=== PATIENT | female | born 1980 | race Caucasian/White ===

== ENCOUNTER 2018-01-11 14:11 | Emergency (ER) | payer BC ==
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
[2018-01-11 15:23] LABS: #Basophils 0.1 thou/uL (0.0-0.2); #Monocytes 0.3 thou/uL (0.11-0.59); #Neutrophils 3.2 thou/uL (1.40-6.50); %Basophils 1.5 % (0.0-1.0); %Eosinophils 0.6 % (0.0-10.0); %Lymphocytes 36.1 % (21.0-51.0); %Monocytes 4.7 % (0.0-10.0); %Neutrophils 57.1 % (42.0-75.0); Hemoglobin 13.1 g/dL (12.0-16.0); Mean Corpuscular HGB CONC 34.2 g/dL (32.0-36.0); Mean Corpuscular Hemoglobin 30.6 pg (27.0-31.0); Mean Corpuscular Volume 89.4 fl (81.0-99.0); Mean Platelet Volume 5.9 fL (7.4-10.4); Platelet Count 303 thou/uL (130-400); RBC Distribution Width 11.3 % (11.5-14.5); Red Blood Cell (RBC) Count 4.27 mill/uL (4.20-5.40); White Blood Cell (WBC) Count 5.5 thou/uL (4.8-10.8)
[2018-01-11 15:26] LABS: BHCG - Serum Negative (NEGATIVE); Pregs Control Background? CLEAR/WHITE (CLR/WHITE); Pregs Control Bar Appear? YES (CONTROL BAR)
[2018-01-11] MEDS ORDERED: Lorazepam 2 MG/ML VIAL ONE (15:26)
[2018-01-11 15:32] LABS: ALT (SGPT) 17 U/L (8-55); AST (SGOT) 21 U/L (5-34); Albumin 4.3 g/dL (3.5-5.0); Alkaline Phosphatase 63 U/L (40-150); Anion Gap 12 mmol/L (10-20); BUN (Urea Nitrogen) 12 mg/dL (7.0-18.7); Bilirubin, Total 0.4 mg/dL (0.2-1.2); Calc. Creatinine Clearance 0 mL/min (70-130); Calcium 9.5 mg/dL (7.8-10.44); Carbon Dioxide 25 mmol/L (22-29); Chloride 105 mmol/L (98-107); Dilantin Less than 1.8 ug/mL (10.0-20.0); Estimated GFR-MDRD 77; Globulin 2.9 g/dL (2.4-3.5); Glucose 93 mg/dL (70-105); Protein, Total 7.2 g/dL (6.0-8.3); Sodium 138 mmol/L (136-145)
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
[2018-01-11] MEDS ORDERED: Ondansetron HCl/PF 4 MG/2 ML Vial ONE (16:57)
== END 2018-01-11 17:16 | disposition home or self-care (01) ==
LOC: ERS 14:11
DX: G40.909 Epilepsy, unspecified, not intractable, without status epilepticus (principal); F41.9 Anxiety disorder, unspecified; G43.909 Migraine, unspecified, not intractable, without status migrainosus; E03.9 Hypothyroidism, unspecified
CPT/HCPCS: 36415; 70450; 71045; 72125; 80053; 80164; 80185; 84703; 85025; 93005; 96374; 96375; 96376; J2060; J2270; J2405

== ENCOUNTER 2018-02-15 20:06 | Observation (INO) | payer BC, OTHER ==
[2018-02-15 20:46] LABS: BHCG - Serum Negative (NEGATIVE); Pregs Control Background? CLEAR/WHITE (CLR/WHITE); Pregs Control Bar Appear? YES (CONTROL BAR)
[2018-02-15 20:54] LABS: ALT (SGPT) 15 U/L (8-55); AST (SGOT) 19 U/L (5-34); Albumin 3.9 g/dL (3.5-5.0); Alkaline Phosphatase 79 U/L (40-150); Anion Gap 12 mmol/L (10-20); BUN (Urea Nitrogen) 7 mg/dL (7.0-18.7); Bilirubin, Total 0.2 mg/dL (0.2-1.2); Calc. Creatinine Clearance 0 mL/min (70-130); Calcium 8.9 mg/dL (7.8-10.44); Carbon Dioxide 24 mmol/L (22-29); Chloride 107 mmol/L (98-107); Estimated GFR-MDRD 77; Globulin 2.7 g/dL (2.4-3.5); Glucose 123 mg/dL (70-105); Potassium 3.6 mmol/L (3.5-5.1); Protein, Total 6.6 g/dL (6.0-8.3); Sodium 139 mmol/L (136-145)
[2018-02-15 20:55] LABS: PTT 27.7 SEC (22.9-36.1); Prothrombin Time 13.6 SEC (12.0-14.7)
--- NOTE | 2018-02-15 21:10 | RAD ---
SINGLE VIEW OF THE CHEST: Comparison: 01-11-18 History: Seizure. History of epilepsy. FINDINGS: Single view of the chest shows a normal sized cardiomediastinal silhouette. There is no evidence of c onsolidation, mass, or pleural effusion. The bones are unremarkable. IMPRESSION: No evidence of acute cardiopulmonary disease. POS: [facility]
[2018-02-15 21:25] LABS: Eosinophils 1 % (0-10); Hemoglobin 12.1 g/dL (12.0-16.0); Lymphocytes 49 % (21-51); MDiff Complete? YES; Mean Corpuscular HGB CONC 34.3 g/dL (32.0-36.0); Mean Corpuscular Hemoglobin 30.4 pg (27.0-31.0); Mean Corpuscular Volume 88.5 fl (81.0-99.0); Mean Platelet Volume 5.8 fL (7.4-10.4); Monocytes 4 % (0-10); Neutrophil 46 % (42-75); PLT Morphology Comment Appears Adequate; Platelet Count 319 thou/uL (130-400); RBC Distribution Width 11.3 % (11.5-14.5); Red Blood Cell (RBC) Count 3.98 mill/uL (4.20-5.40); White Blood Cell (WBC) Count 6.3 thou/uL (4.8-10.8)
--- NOTE | 2018-02-15 22:13 | CT ---
CT BRAIN WITHOUT CONTRAST: Comparison: 01-11-18 History: Multiple seizures. History of brain mass. Technique: Multiple contiguous axial images were obtained in a CT of the brain without contrast. FINDINGS: The brain is normal in morphology and attenuation without focal lesions or confluent areas of infarct ion. There is no evidence of hydrocephalus, intracranial hemorrhage, or extraaxial fluid collection. The calvarium and overlying soft tissues are unremarkable. The visualized paranasal sinuses and masto id air cells are well aerated. IMPRESSION: No evidence of acute intracranial abnormality. POS: [facility]
[2018-02-15] MEDS ORDERED: Valproate Sodium 1,000 MG in Sodium Chloride 0.9% 100 ML IVPB SCH ×2 (22:15→23:45)
[2018-02-15] MEDS ORDERED: Morphine 4 MG/ML VIAL ONE (22:58)
[2018-02-15] MEDS ORDERED: Ketorolac Tromethamine 30 MG/ML VIAL ONE (22:58)
[2018-02-16 00:42] LABS: Lactic Acid 1.7 mmol/L (0.5-2.2)
[2018-02-16] MEDS ORDERED: Acetaminophen 325 MG TAB PO PRN ×2 (02:35→03:44)
[2018-02-16] MEDS ORDERED: Sodium Chloride 0.9% 1,000 ML IV SCH (02:35)
[2018-02-16] MEDS ORDERED: Ondansetron HCl/PF 4 MG/2 ML Vial IVP PRN ×2 (02:35→03:44)
[2018-02-16] MEDS ORDERED: Ondansetron ODT 4 MG TAB SL PRN (02:35)
[2018-02-16] MEDS ORDERED: ELETRIPTAN HYDROBROMIDE 40 MG PO PRN (03:33)
[2018-02-16] MEDS ORDERED: ALPRAZolam 0.5 MG TAB PO PRN (03:33)
[2018-02-16] MEDS ORDERED: tiZANidine HCl 4 MG TAB PO PRN (03:33)
[2018-02-16] MEDS ORDERED: diphenhydrAMINE 50 MG CAP PO PRN (03:33)
[2018-02-16] MEDS ORDERED: Methocarbamol 500 MG TAB PO PRN (03:37)
[2018-02-16] MEDS ORDERED: Lorazepam 2 MG/ML VIAL SLOW IVP PRN (03:42)
[2018-02-16] MEDS ORDERED: Milk Of Magnesia 30 ML UDCUP PO PRN (03:44)
[2018-02-16] MEDS ORDERED: Ondansetron ODT 4 MG TAB PO PRN (03:44)
[2018-02-16] MEDS ORDERED: Mag-Al 1200 mg/1200 mg/30 ML UDCUP PO PRN (03:44)
[2018-02-16] MEDS ORDERED: traZODone HCl 150 MG TAB PO SCH (03:45)
[2018-02-16] MEDS ORDERED: Mirtazapine 15 MG TAB PO SCH ×2 (03:45→21:00)
[2018-02-16] MEDS ORDERED: ALPRAZolam 0.5 MG TAB PO SCH ×2 (03:45→18:45)
[2018-02-16] MEDS ORDERED: SUMAtriptan Succinate 50 MG TAB PO PRN (03:48)
[2018-02-16] MEDS: diphenhydrAMINE 50 MG CAP PO PRN (04:05)
[2018-02-16] MEDS: Sodium Chloride 0.9% 1,000 ML IV SCH ×2 (04:07→18:51)
[2018-02-16] MEDS: Ketorolac Tromethamine 30 MG/ML VIAL IVP PRN ×2 (04:10→18:25)
[2018-02-16] MEDS: Levothyroxine Sodium 75 MCG TAB PO SCH (04:18)
--- NOTE | 2018-02-16 04:34 | PDOC.FPRHP ---
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 Per patient, she was with her dog when she felt like she was tripping over the leash. She fell back on her bottom, and upon getting up she reports having seizure-like activity. She recovered and was able to walk a short distance before having another seizure. At this time her was present who helped her to the ground. Patient reportedly had upwards of 20 seizures between onset and arrival to ED. She recalls being aware she was having a seizure, but was unable to control her body. Her states these are not like her normal seizures. She has had several stressors recently to include problems with her son and a recent in the family a few days ago. She was last hospitalized in December for similar reason and was diagnosed with psychogenic non-epileptic seizures. She had multiple stressors at that time, as well. Patient sees Dr. Arce in [place] for neurology follow up. She was titrated off of Depakote 1 month ago, because it did not seem to be working. She has been on Vimpat for about a year. ED Course: Patient was given 8 mg of Ativan, 4 mg of morphine, and 15 mg of toradol in the ED. Neurology was consulted. Dr. Warner recommended loading dose of depakote. He will see patient in AM. - Allergies/Adverse Reactions Allergies Allergy/AdvReac Type Severity Reaction Status Date / Time meperidine HCl [From Demerol] AdvReac Mild Nausea Verified 05/26/17 00:06 ADHESIVES AdvReac Mild Rash Uncoded 05/26/17 00:07 - Home Medications Medication Instructions Recorded Confirmed Type Estrogens, Conjugated [Premarin] 0.15 mg PO HS 11/05/13 02/16/18 History Multivitamin [Multi-Vitamin Daily] 1 tablet PO DAILY 11/05/13 02/16/18 History Venlafaxine HCl [Effexor] 75 mg PO DAILY 11/05/13 02/16/18 History ALPRAZolam [Xanax] 0.5 mg PO TID 11/08/13 02/16/18 History Cyanocobalamin/Folic Acid [Vitamin 1 tablet PO DAILY 07/15/14 02/16/18 History B12/Folic Acid] Mirtazapine [Remeron] 7.5 mg PO HS 05/20/16 02/16/18 History Eletriptan Hydrobromide [Relpax] 40 mg PO PRN PRN #0 tab 05/22/16 02/16/18 Rx Aspirin [Aspirin Chewable Tablet] 81 mg PO DAILY 08/11/16 02/16/18 History Cholecalciferol (Vitamin D3) 2,000 unit PO HS 08/11/16 02/16/18 History [Vitamin D] Levothyroxine Sodium 75 mcg PO DAILY 03/08/17 02/16/18 History Lacosamide [Vimpat] 50 mg PO BID 05/26/17 02/16/18 History tiZANidine HCl [Tizanidine HCl] 2 mg PO PRN PRN 05/26/17 02/16/18 History traZODone HCl 100 mg PO HS 05/26/17 02/16/18 History ALPRAZolam [Xanax] 0.5 mg PO HS PRN 02/16/18 02/16/18 History Verapamil HCl 40 mg PO DAILY 02/16/18 02/16/18 History diphenhydrAMINE HCl [Unisom] 100 mg PO HS PRN 02/16/18 02/16/18 History - History PMHx: Partial complex and grand mal seizures, hx of psychogenic non-epileptic seizures, empty sella syndrome, hypothyroidism, depression, anxiety, migraine headaches with aura PSHx: Hysterectomy, cholecystectomy, hemorrhoidectomy, D&C x2, rhinoplasty, knee surgery FHx: Non-contributory Social: Patient lives at home with her and kids. She denies tobacco, alcohol or drug use. - Review of Systems General: denies: fever/chills, weight/appetite/sleep changes, night sweats Eyes: denies: vision changes ENT: denies: nasal congestion Respiratory: denies: cough, shortness of breath Cardiovascular: denies: chest pain, palpitation, edema Gastrointestinal: denies: nausea, vomiting, diarrhea, abdominal pain Genitourinary: denies: dysuria Skin: denies: rashes Musculoskeletal: reports: pain (diffuse body aches) Neurological: reports: seizure Psychological: reports: anxiety, depression - Vital signs BP: [107/72] HR: [93] RR: [20] Tmax: [98.0] Pox: [98]% on [RA] Wt: [] - Physical Exam Constitutional: NAD, awake, alert and oriented, well developed HEENT: normocephalic and atraumatic, PERRLA, EOMI, no scleral icterus, grossly normal vision, grossly normal hearing Neck: supple Heart: RRR, normal S1/S2, no murmurs/rubs/gallops, pulses present, no edema Lungs: CTAB, no respiratory distress, good air movement, no wheezing Abdomen: soft, non-tender, bowel sounds present, no masses/distention Musculoskeletal: normal structure, normal tone Neurological: no focal deficit, CN II-XII intact Skin: no rash/lesions, capillary refill <2 seconds Heme/Lymphatic: no unusual bruising or bleeding -Psychiatric: Depressed/sad affect, tearful on exam, anxious appearing FMR H&P: Results - Labs Result Diagrams: 02/15/18 20:15 02/16/18 09:28 Lab results: WBC 6.3 thou/uL (4.8-10.8) 02/15/18 20:15 Hgb 12.1 g/dL (12.0-16.0) 02/15/18 20:15 Hct 35.3 % (36.0-47.0) L 02/15/18 20:15 MCV 88.5 fl (81.0-99.0) 02/15/18 20:15 Plt Count 319 thou/uL (130-400) 02/15/18 20:15 Sodium 139 mmol/L (136-145) 02/15/18 20:21 Potassium 3.6 mmol/L (3.5-5.1) 02/15/18 20:21 Chloride 107 mmol/L (98-107) 02/15/18 20:21 Carbon Dioxide 24 mmol/L (22-29) 02/15/18 20:21 BUN 7 mg/dL (7.0-18.7) 02/15/18 20:21 Creatinine 0.83 mg/dL (0.6-1.1) 02/15/18 20:21 Glucose 123 mg/dL (70-105) H 02/15/18 20:21 Lactic Acid 1.7 mmol/L (0.5-2.2) 02/16/18 00:18 Calcium 8.9 mg/dL (7.8-10.44) 02/15/18 20:21 Total Bilirubin 0.2 mg/dL (0.2-1.2) 02/15/18 20:21 AST 19 U/L (5-34) 02/15/18 20:21 ALT 15 U/L (8-55) 02/15/18 20:21 Alkaline Phosphatase 79 U/L (40-150) 02/15/18 20:21 Serum Total Protein 6.6 g/dL (6.0-8.3) 02/15/18 20:21 Albumin 3.9 g/dL (3.5-5.0) 02/15/18 20:21 - Radiology Interpretation Chest x-ray Status: report reviewed by me Additional comment: No acute findings CT scan - head Status: report reviewed by me Additional comment: No acute findings FMR H&P: A/P - Problem List (1) Psychogenic nonepileptic seizure Current Visit: No Status: Acute Code(s): F44.5 - CONVERSION DISORDER WITH SEIZURES OR CONVULSIONS (2) Depression Current Visit: Yes Status: Acute Code(s): F32.9 - MAJOR DEPRESSIVE DISORDER , SINGLE EPISODE, UNSPECIFIED (3) Migraine with aura Current Visit: Yes Status: Acute Code(s): G43.109 - MIGRAINE WITH AURA, NOT INTRACTABLE, W/O STATUS MIGRAINOSUS (4) Empty sella syndrome Current Visit: Yes Status: Chronic Code(s): E23.6 - OTHER DISORDERS OF PITUITARY GLAND (5) Anxiety Current Visit: No Status: Chronic Code(s): F41.9 - ANXIETY DISORDER, UNSPECIFIED (6) Hypothyroidism Current Visit: No Status: Chronic Code(s): E03.9 - HYPOTHYROIDISM, UNSPECIFIED (7) Seizure disorder, complex partial Current Visit: No Status: Chronic Code(s): G40.209 - LOCAL-REL SYMPTC EPI W CMPLX PRT SEIZ,NOT NTRCT,W/O STAT EPI Qualifiers: Epilepsy type: partial symptomatic Intractability: not intractable Status epilepticus: without status epilepticus Qualified Code(s): G40.209 - Localization-related (focal) (partial) symptomatic epilepsy and epileptic syndromes with complex partial seizures, not intractable, without status epilepticus (8) Seizure disorder, grand mal Current Visit: No Status: Chronic Code(s): G40.409 - OTH GENERALIZED EPILEPSY, NOT INTRACTABLE, W/O STAT EPI - Plan Psychogenic non-epileptic seizures - Several episodes of seizure-like activity which started this afternoon - Hospitalized in mid-December for similar problem, and was diagnosed with psychogenic non-epileptic seizures; would benefit for psych eval - Trigger includes severe stress of which patient endorses at this time; recent in the family and trouble with son - Patient on vimpat for seizures which she has been on for the last year - Recently titrated off of depakote (1 month ago), because it was not working - Neurology consulted in ED; recommended loading dose of depakote - Appreciate neurology recs - Neuro checks Hx of grand mal and partial complex seizures - Continue home medications - Appreciate neurology results Hx of migraine with auras - Continue home medications Depression - Continue current medications; may consider increasing dose of SSRI - Would benefit from psych eval/psychotherapy Anxiety - Continue home medications Empty sella syndrome Hypothyroidism - Continue home medications Disposition/LOS: Dispo: patient admitted to stroke unit for obs. Discharge home with close follow up pending neurology recommendations. FMR H&P: Upper Level - Pertinent history 37yo CF with pmhx seizure d/o (complex partial + grand mal), empty sella syndrome, migraine d/o, hypothyroidism, and anxiety presents with sudden onset of multiple episodes of seizure-like activity after falling at home. Endorses multiple life stressors recently including loss of grandparent and absence of son from life. present at bedside witnessed seizure activity today and pt noted to have both grand mal and partial complex seizures. Called 911 and pt given ativan en route and had multiple recurrent episodes of partial complex seizure activity both on ambulance and upon arrival to ED. ED gave further ativan and morphine and pt noted to stop seizure like activity. Pt aware of some events of seizure but not all. States she is scared that she is having them and knows that they are worsened by stress and anxiety. Also, pt and neurologist in [place] have been working to wean off depakote as pt has been titrated up on Vimpat and has been off depakote for 3 weeks now entirely. (Level =0 in ED). ED physician d/w Dr. Warner who recommended depakote load in ED. - Pertinent findings Labs- CBC, CMP- wnl LA- 3.1-->1.7 after IVF Prolactin- 12.79 valproic acid < 12.5 CT head- neg PE- Gen- drowsy but arousable and appropriate HEENT- normocephalic, atraumatic. PERRL, EOMI. CV & Lungs- wnl Neuro- no focal deficits noted. mildly confused speech but essentially wnl. Derm- scattered scars, abrasions Psyc- A&O x3, anxious-appearing, tearful. - Plan Date/Time: 02/16/18 0432 37yo CF with pmhx seizure d/o and prior PNES presents with- 1) seizure-like activity in pre-existing seizure d/o- likely combination of epileptic seizures and psychogenic nonepileptic seizures as pt endorses stress/ anxiety as a major component. counseled regarding life stressors. restart home meds and consider titration up of SSRI w/ improved anxiety control. cont home benzo. will likely benefit from psychotherapy as outpatient. pt is s/p depakote load in ED. pending further recs from Dr. Warner (consulted in ED), and primary neurologist out of [place]. 2) seizure d/o (complex partial & grand mal type seizures)- continue vimpat and seizure ppx/ precautions. 3) anxiety 4) migraine d/o 5) hypothyroidism I, [Obdulia Sheriff DO ([id number])], have evaluated this patient and agree with findings/plan as outlined by quality internship resident. Pertinent changes/additions are listed here. Attending Addendum - Attending Addendum Date/Time: 02/16/18 [id number] I personally evaluated the patient and discussed the management with Dr. Lawler and Dr. Sheriff I agree with the History, Examination, Assessment and Plan documented above with any addition or exceptions noted below. 37 yo female with multiple medical conditions on multiple medications presents for evaluation of seizure-like activity. Patient reports multiple convulsive episodes with brief alterations in consciousness. Has resolved since admission. Labs reviewed and stable. Prolactin WNL. Old records from [facility] reviewed. Noted to have epileptic and non-epileptic seizures. Epileptic seizures appear to be dx in 2012. EEG at that time was negative. Neurology has been consulted for this hospitalization. Have requested records from neurologistist in [place]/[facility] on more than one occasion without success. Still awaiting records. Has history of migraine headaches with neurosensory loss. Has been recommended to her in the past not to take estrogen or triptans. Appears to continue these as home meds. Will readdress with neurology. Stable partial empty sella on MRI. Will address with neurology. Appears to have borderline hypothyroidism which is treated with 50 mcg of levothyroxine. TSH = 0.5. No other pituitary issues. Polypharmacy. Unsure psych dx. Has seen [facility] in the past. Unsure if been followed currently. Needs psych MD. Will review with pharm to make sure not a contributing factor or causing lower seizure thresholds. Awaiting neurology along with neurology records for confirmation testing of epileptic dx. Jose Manuel
[2018-02-16] MEDS ORDERED: Lorazepam 2 MG/ML VIAL ONE ×2 (05:07→05:08)
[2018-02-16] MEDS: Verapamil 80 MG TAB PO SCH (08:09)
[2018-02-16] MEDS: Pregabalin 75 MG CAP PO SCH ×2 (08:12→22:48)
[2018-02-16] MEDS: Lacosamide 50 mg Tablet PO SCH ×2 (08:12→22:48)
[2018-02-16] MEDS: Multivit, Therapeutic 1 TAB PO SCH (08:13)
[2018-02-16] MEDS: Cyanocobalamin (Vitamin B-12) 1,000 MCG TAB PO SCH (08:13)
[2018-02-16] MEDS: Docusate 100 MG CAP PO SCH ×2 (08:13→22:50)
[2018-02-16] MEDS: ALPRAZolam 0.5 MG TAB PO SCH ×2 (08:13→13:36)
--- NOTE | 2018-02-16 09:47 | PDOC.EVN ---
Event Note - Event Note Event Note: Will carrasquillo called as pt feel from standing after ambulating. She reportedly went to the ground and began moaning. She subsequnelty began mild convulsive like activity at which point nurse in the room who witnessed fall called a code foreign. On eval of pt she was unresponsive lying on the floor in position. She did not respond to sternal rub, arm drop did not strike pts face. She did withdrawal from painful stimuli with nail pinch. Her heart was regular rate and rhythm, she appeared to be breath holding, nonetheless respiratory rate fell w/ in normal limits. Her BP was wnl, glucose was 95 and she did not have any tonic clonic activity or convulsions when I was at bedside. Her rhythm strip from tele monitor showed sinus tachycardia, otherwise normal. She had no post ictal state following event and was asking for her when she recovered. No loss of bowel or bladder function. Will get CT head and neck for fall and repeat BMP and prolactin. Pt was conversing with nursing staff and had no gross neuro deficit immediately following event. <Riley Cary - Last Filed: 02/16/18 09:36> Attending Addendum - Attending Addendum Date/Time: 02/17/18 1302 I personally evaluated the patient and discussed the management with Dr. Cary and Dr. Calderon I was present with Dr. Cary and Dr. Calderon during code green. Agree with documentation able. Did not appear to be an epileptic seizure but more consist with patients nonepileptic seizures. Awaiting evaluation of neurology. Patient back to baseline at end of code. Will trauma scan 2/2 fall. Scratches noted to upper and lower extremities. Will address this afternoon in regards to possible self harm vs trauma. ABrayMD <Maria Del Carmen Madsen - Last Filed: 02/17/18 13:11>
[2018-02-16 10:00] LABS: Anion Gap 13 mmol/L (10-20); BUN (Urea Nitrogen) 4 mg/dL (7.0-18.7); Calc. Creatinine Clearance 4 mL/min (70-130); Calcium 9.3 mg/dL (7.8-10.44); Carbon Dioxide 22 mmol/L (22-29); Chloride 109 mmol/L (98-107); Estimated GFR-MDRD 83; Glucose 84 mg/dL (70-105); Sodium 140 mmol/L (136-145)
--- NOTE | 2018-02-16 13:01 | CT ---
NONCONTRAST HEAD CT: HISTORY: The patient fell yesterday. The patient had a seizure again this morning and fell again. COMPARISON: 02/15/2018 TECHNIQUE: A noncontrast head CT is performed from the skull base to the skull vertex. FINDINGS: No parenchymal hemorrhage. No extraaxial hematoma. No midline shift. Basilar cisterns are patent. Brain volume is age appropriate. Cortical worrell white matter differentiation is preserved. The ventricles and sulci are patent and symmetric. The calvarium is intact. Adequate aeration of the sinuses and mastoid air cells. IMPRESSION: No intracranial posttraumatic sequelae. POS: [facility]
--- NOTE | 2018-02-16 13:13 | CT ---
ABDOMEN CT WITH CONTRAST: PELVIS CT WITH CONTRAST: HISTORY: Status post fall. Seizure. Left pelvic pain. COMPARISON: None. TECHNIQUE: Abdomen and pelvis CT is performed with IV contrast. Coronal reformatted images are submitted for in terpretation. FINDINGS: ABDOMEN: Presumed atelectatic changes in the lung bases. Heart size is normal. No pericardial effu stephen. The descending thoracic aorta and abdominal aorta have a normal caliber. No periaortic fat st randing. Symmetric attenuation of the psoas muscles. The gallbladder is surgically absent. Intrahepatic and extrahepatic portal vein is patent. No gastrohepatic, retrocrural, or periportal lymphadenopathy. No mesenteric mass, lymphadenopathy, free air, or free fluid. Symmetric enhancement of the kidneys. No obstructive uropathy. The liver, spleen, pancreas, and adrenal glands have appropriate enhancement. No CT evidence of alysa d organ injury. Limited evaluation of the alimentary canal due to lack of oral contrast. No evidence of bowel injury or bowel obstruction. Normal caliber appendix is noted. Fecal material in a nondistended, nondilat ed colon. Diverticulosis without evidence of diverticulitis. PELVIS: The uterus is surgically absent. Mild irregularity of the urinary bladder, nonspecific. No pelvis mass, lymphadenopathy, free air, or free fluid. Incidental anastomosis at the rectosigmoid r egion is noted. The visualized ribs are unremarkable. The visualized lumbar spine vertebral body height is maintaine d. No fracture. The transverse processes are intact. The sacral ala is intact. The sacroiliac karin nts are patent and symmetric. The bony pelvis is also intact. The visualized left and right hip is unremarkable. IMPRESSION: No posttraumatic change. POS: [facility]
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
[2018-02-16] MEDS ORDERED: Iopamidol 370 76% 100 ML VIAL ONE (15:09)
--- NOTE | 2018-02-16 20:01 | CON ---
DATE OF CONSULTATION: 02/16/2018. NEUROLOGY CONSULTATION CONSULTING PHYSICIAN: [facility]. IMPRESSION: Ms. Bolivar is a prior patient of mine who [facility] [place] She has failed multiple anticonvulsant drugs. There is a question as to whether her seizures are partly psychogenic. She has had previous epilepsy monitoring and she reports that t here was evidence of epilepsy present. I do not have anything I can offer her. She is continuing to have events. I would see about having her transferred to [place] to be taken under the care of her primary neurologist.
[2018-02-16] MEDS ORDERED: Estrogens, Conjugated 0.3 MG TAB PO SCH (21:00)
[2018-02-16] MEDS ORDERED: traZODone HCl 50 MG TAB PO SCH (21:00)
[2018-02-16] MEDS: HYDROcodone/Acetaminophen 5/325 mg Tablet PO PRN (22:52)
[2018-02-17] MEDS: diphenhydrAMINE 50 MG CAP PO PRN (00:17)
[2018-02-17] MEDS: Sodium Chloride 0.9% 1,000 ML IV SCH ×2 (00:23→10:26)
[2018-02-17] MEDS: Levothyroxine Sodium 75 MCG TAB PO SCH (06:04)
[2018-02-17 06:13] LABS: Anion Gap 10 mmol/L (10-20); BUN (Urea Nitrogen) 7 mg/dL (7.0-18.7); Calc. Creatinine Clearance 4 mL/min (70-130); Calcium 8.9 mg/dL (7.8-10.44); Carbon Dioxide 25 mmol/L (22-29); Chloride 108 mmol/L (98-107); Estimated GFR-MDRD Greater than 90; Glucose 99 mg/dL (70-105); Potassium 3.6 mmol/L (3.5-5.1); Sodium 139 mmol/L (136-145)
[2018-02-17 06:33] LABS: Hemoglobin 11.6 g/dL (12.0-16.0); Lymphocytes 51 % (21-51); MDiff Complete? YES; Mean Corpuscular HGB CONC 33.9 g/dL (32.0-36.0); Mean Corpuscular Hemoglobin 30.3 pg (27.0-31.0); Mean Corpuscular Volume 89.4 fl (81.0-99.0); Mean Platelet Volume 6.1 fL (7.4-10.4); Monocytes 11 % (0-10); Neutrophil 34 % (42-75); PLT Morphology Comment Appears Adequate; Platelet Count 294 thou/uL (130-400); RBC Distribution Width 11.6 % (11.5-14.5); RBC Morphology Normal; Reactive Lymphocytes 4 % (0-10); Red Blood Cell (RBC) Count 3.81 mill/uL (4.20-5.40); White Blood Cell (WBC) Count 5.3 thou/uL (4.8-10.8)
[2018-02-17 09:25] LABS: Acetaminophen Less than 6.0 mcg/mL (10.0-30.0); Alcohol Less than 10 mg/dL (Less than 10); Salicylate Less than 8.0 mg/dL (15.0-30.0)
[2018-02-17] MEDS: Cyanocobalamin (Vitamin B-12) 1,000 MCG TAB PO SCH (09:25)
[2018-02-17] MEDS: ALPRAZolam 0.5 MG TAB PO SCH ×2 (09:25→13:58)
[2018-02-17] MEDS: Multivit, Therapeutic 1 TAB PO SCH (09:26)
[2018-02-17] MEDS: Lacosamide 50 mg Tablet PO SCH (09:26)
[2018-02-17] MEDS: Pregabalin 75 MG CAP PO SCH (09:26)
[2018-02-17] MEDS: Docusate 100 MG CAP PO SCH (09:26)
[2018-02-17] MEDS: Verapamil 80 MG TAB PO SCH (09:28)
[2018-02-17] MEDS: HYDROcodone/Acetaminophen 5/325 mg Tablet PO PRN (09:49)
--- NOTE | 2018-02-17 11:14 | PDOC.FM ---
- Subjective Subjective: No acute events overnight. Pt reports pelvis pain from fall yesterday. Otherwise no complaints. Per the night team, pt reported that "she is only getting three xanax a day since shes been here and usually takes four. If [she] doesn't get another she may will have another seizure." She reports many instances of "seizures" being triggered by psychiatric stressors, including loss of loved ones, family dynamic stresses and the presence of pain (including headaches). She denies SI and HI. - Objective Vital Signs & Weight: Vital Signs (12 hours) Temp Pulse Resp BP BP Pulse Ox 02/17/18 10:00 103/72 02/17/18 08:11 98.1 F 97 18 02/17/18 08:06 98.6 F 88 16 93/53 L 98 02/17/18 03:52 97 18 101/68 97 02/17/18 01:05 90 18 115/79 98 I&O: 02/16/18 02/17/18 02/18/18 06:59 06:59 06:59 Intake Total 615 1480 540 Output Total 700 1000 Balance -85 480 540 Result Diagrams: 02/17/18 05:14 02/17/18 05:14 <Riley Cary - Last Filed: 02/17/18 11:11> - Objective Vital Signs & Weight: Vital Signs (12 hours) Temp Pulse Resp BP BP Pulse Ox 02/17/18 12:22 98.2 F 101 H 16 131/88 98 02/17/18 10:00 103/72 02/17/18 08:11 98.1 F 97 18 02/17/18 08:06 98.6 F 88 16 93/53 L 98 02/17/18 03:52 97 18 101/68 97 I&O: 02/16/18 02/17/18 02/18/18 06:59 06:59 06:59 Intake Total 615 1480 540 Output Total 700 1000 Balance -85 480 540 Result Diagrams: 02/17/18 05:14 02/17/18 05:14 <Maria Del Carmen Madsen - Last Filed: 02/17/18 14:01> Phys Exam - Physical Examination Constitutional: NAD HEENT: PERRLA, sclera anicteric Respiratory: no wheezing, no rales, no rhonchi, clear to auscultation bilateral Cardiovascular: RRR, no significant murmur, no rub Gastrointestinal: soft, non-tender, no distention, positive bowel sounds Musculoskeletal: no edema, pulses present Neurological: non-focal, moves all 4 limbs Deviation from normal: tearful, delayed speech pattern w/o dysarrthria <Riley Cary - Last Filed: 02/17/18 11:11> Dx/Plan (1) Seizure Code(s): R56.9 - UNSPECIFIED CONVULSIONS Status: Acute - Plan Plan: Seizure disorder: -pt has a specialist in [place] and has an appt set up for next @ 245pm. She was seen by neurology here who recommended transfer to [place] where she can get care from her specialist. We will touch base with Neuro today to clarify as to whether pt requires transfer or is stable enough for DC and OP f/ u. Given descriptors of "seizure" events and association with psych stressors PNES remains a possibility. To date, have not been able to obtain EEG results that have recorded seizure activity. She would benefit from seeing her specialist in [place] and we will arrange the safest feasible way to make that happen. Likely DC or transfer today pending neuro recs. - continue all other home medications for chronic med conditions and seizure disorder. <Riley Cary - Last Filed: 02/17/18 11:11> (1) Psychogenic nonepileptic seizure Code(s): F44.5 - CONVERSION DISORDER WITH SEIZURES OR CONVULSIONS Status: Acute (2) Depression Code(s): F32.9 - MAJOR DEPRESSIVE DISORDER, SINGLE EPISODE, UNSPECIFIED Status : Acute (3) Migraine with aura Code(s): G43.109 - MIGRAINE WITH AURA, NOT INTRACTABLE, W/O STATUS MIGRAINOSUS Status: Acute (4) Empty sella syndrome Code(s): E23.6 - OTHER DISORDERS OF PITUITARY GLAND Status: Chronic (5) Anxiety Code(s): F41.9 - ANXIETY DISORDER, UNSPECIFIED Status: Chronic (6) Hypothyroidism Code(s): E03.9 - HYPOTHYROIDISM, UNSPECIFIED Status: Chronic (7) Seizure disorder, complex partial Code(s): G40.209 - LOCAL-REL SYMPTC EPI W CMPLX PRT SEIZ,NOT NTRCT,W/O STAT EPI Status: Chronic Qualifiers: Epilepsy type: partial symptomatic Intractability: not intractable Status epilepticus: without status epilepticus Qualified Code(s): G40.209 - Localization-related (focal) (partial) symptomatic epilepsy and epileptic syndromes with complex partial seizures, not intractable, without status epilepticus (8) Seizure disorder, grand mal Code(s): G40.409 - OTH GENERALIZED EPILEPSY, NOT INTRACTABLE, W/O STAT EPI Status: Chronic <Maria Del Carmen Madsen - Last Filed: 02/17/18 14:01> Attending Addendum - Attending Addendum Date/Time: 02/17/18 4462 I personally evaluated the patient and discussed the management with Dr. Cary and Dr. Calderon I agree with the History, Examination, Assessment and Plan documented above with any addition or exceptions noted below. 37 yo female with multiple medical problems admitted for evaluation of seizure- like activity. No new complaints today. No neuro deficits on exam today. and daughter at bedside today with patient. Discussed case and care plan with patient. Will address urgency of referral to epilepsy specialist with neuro on case. Dispo pending clarification of recs. Patient and family appear satisfied with plan. Reported they would prefer to follow up outpatient vs inpatient transfer. ABrayMD <Maria Del Carmen Madsen - Last Filed: 02/17/18 14:01>
--- NOTE | 2018-02-17 11:31 | PDOC.EVN ---
Event Note - Event Note Event Note: I personally spoke with Dr. Warner concerning disposition planning. Family is adamantly refusing transfer via EMS to [facility] where their neurologists are located. Dr. Warner endorsed feeling comfortable with discharge home due to f/u appt scheduled next , 02/25, with her primary neurologist in [place]. As patient and family are preferring this option as well , we will make arrangements to discharge home today. <Rafi Calderon - Last Filed: 02/17/18 11:29> Attending Addendum - Attending Addendum Date/Time: 02/17/18 4107 I personally evaluated the patient and discussed the management with Dr. Calderon. Patient and at bedside. Expressed desire to see her primary epilepsy specialist due to continued frequency of seizure activity. Patient reports knowing seizure active increases with personal stress and lack of sleep. Risk discussed. Patient actually request going home today. Refused transfer to epilepsy center via EMS and private vehicle. Discussed need to address with neurologist on case. Has follow up with primary epileptologist on at 1400. Patient's confirmed appointment. Confirmed plan with neurology covering case in hospital who is ok with plan and followup. Please see above documentation as well. Jose Manuel <Maria Del Carmen Madsen - Last Filed: 02/17/18 13:26>
[2018-02-17 12:32] VITALS: BP 131/88; TEMP 98.2
== END 2018-02-17 14:27 | disposition home or self-care (01) ==
LOC: ERS 20:06 → 2SW 02-16 02:36
PROVIDERS: ADMIT Family Medicine; ATTEND Family Medicine
DX: F44.5 Conversion disorder with seizures or convulsions (principal); G40.409 Other generalized epilepsy and epileptic syndromes, not intractable, without status epilepticus; G40.209 Localization-related (focal) (partial) symptomatic epilepsy and epileptic syndromes with complex partial seizures, not intractable, without status epilepticus; G43.109 Migraine with aura, not intractable, without status migrainosus; F41.9 Anxiety disorder, unspecified; E23.6 Other disorders of pituitary gland; F32.9 Major depressive disorder, single episode, unspecified; E03.9 Hypothyroidism, unspecified; Z88.5 Allergy status to narcotic agent; Z91.048 Other nonmedicinal substance allergy status; Z79.890 Hormone replacement therapy; Z79.899 Other long term (current) drug therapy; Z79.82 Long term (current) use of aspirin; W19.XXXA Unspecified fall, initial encounter; Y92.009 Unspecified place in unspecified non-institutional (private) residence as the place of occurrence of the external cause
CPT/HCPCS: 36415; 36416; 70450; 71045; 72125; 74177; 80048; 80053; 80164; 80307; 83605; 84146; 84443; 84703; 85025; 85610; 85730; 93005; 96361; 96365; 96366; 96375; 96376; A4216; G0378; J1885; J2060; J2270; J7050

== ENCOUNTER 2018-04-17 21:56 | Observation (INO) | payer OTHER ==
[2018-04-17 22:24] LABS: #Basophils 0.1 thou/uL (0.0-0.2); #Eosinphils 0.1 thou/uL (0.0-0.7); #Lymphocytes 2.2 thou/uL (1.20-3.40); #Monocytes 0.4 thou/uL (0.11-0.59); #Neutrophils 2.9 thou/uL (1.40-6.50); %Basophils 0.9 % (0.0-1.0); %Eosinophils 1.3 % (0.0-10.0); %Lymphocytes 39.1 % (21.0-51.0); %Monocytes 6.9 % (0.0-10.0); %Neutrophils 51.8 % (42.0-75.0); Hemoglobin 11.4 g/dL (12.0-16.0); Mean Corpuscular HGB CONC 34.7 g/dL (32.0-36.0); Mean Corpuscular Hemoglobin 30.5 pg (27.0-31.0); Mean Corpuscular Volume 87.9 fl (81.0-99.0); Mean Platelet Volume 5.4 fL (7.4-10.4); Platelet Count 272 thou/uL (130-400); RBC Distribution Width 11.2 % (11.5-14.5); Red Blood Cell (RBC) Count 3.72 mill/uL (4.20-5.40); White Blood Cell (WBC) Count 5.6 thou/uL (4.8-10.8)
[2018-04-17 22:39] LABS: Bilirubin Negative (Negative); Blood, Urine Negative (Negative); Clarity CLEAR (Clear); Glucose, Urine (Dipstick) Negative (Negative); Leukocyte Negative (Negative); Nitrite Negative (Negative); Protein, Urine (Dipstick) Negative (Neg-Trace); Specific Gravity, Urine 1.006 (1.002-1.036); Urobilinogen 0.2 mg/dL (0.2-1.0); pH, Urine 7.5 (5.0-9.0)
[2018-04-17 22:44] LABS: ALT (SGPT) 14 U/L (8-55); AST (SGOT) 17 U/L (5-34); Albumin 3.7 g/dL (3.5-5.0); Alkaline Phosphatase 61 U/L (40-150); Anion Gap 10 mmol/L (10-20); BUN (Urea Nitrogen) 9 mg/dL (7.0-18.7); Bilirubin, Total 0.2 mg/dL (0.2-1.2); Calc. Creatinine Clearance 0 mL/min (70-130); Calcium 8.7 mg/dL (7.8-10.44); Carbon Dioxide 26 mmol/L (22-29); Chloride 108 mmol/L (98-107); Estimated GFR-MDRD Greater than 90; Globulin 2.4 g/dL (2.4-3.5); Glucose 86 mg/dL (70-105); Potassium 3.8 mmol/L (3.5-5.1); Protein, Total 6.1 g/dL (6.0-8.3); Sodium 140 mmol/L (136-145)
--- NOTE | 2018-04-17 22:45 | RAD ---
LEFT KNEE FOUR VIEWS: INDICATIONS: Laceration. Pain in left knee. COMPARISON: Reference made to a 12/04/2013 exam. FINDINGS: No fracture, dislocation, or joint capsular distention. There is mild skin surface irregularity at t he infrapatellar region. IMPRESSION: 1. No acute osseous abnormality of the left knee. 2. No radiopaque foreign bodies seen within the regional soft tissues. POS: [facility]
[2018-04-17] MEDS ORDERED: Lidocaine 1% w/Epinephrine 1:100K 20 ML VIAL ONE (23:57)
[2018-04-17] MEDS ORDERED: Morphine 4 MG/ML VIAL ONE (23:57)
--- NOTE | 2018-04-18 01:40 | PDOC.FPRHP ---
- History of Present Illness Chief Complaint: Seizure History of Present Illness: 37 yo F w/hx of seizure disorder NOS and pseudoseizures here with complaint of 5 + seizures today at home. She states that the first seizure was unwitnessed, but she remembers falling backwards onto her back while seizing. She then made her way inside where her other seizures were witnessed by her daughter. Seizures were described as grand mal type seizures. Due to the number of seizures she called EMS for evaluation in the ED. In route pt was given 4 of ativan and 2.5 of versed. Pt states that she has a hx of 4 types of seizures and names specifically partial and grand mal seizures. She has had multiple extensive work ups in the past to include multiple EEGs and a therapeutic LP and now sees a neurologist in the [place] area who is working on medical management. She states that she typically has 1 seizure per week and that they are exacerbated by stress and that she has been under increased stress as of late. She states that today's episodes are similar to those in the past, but that she has noticed a decreased post ictal period of apprx 30 sec. She states that the seizures are lasting about 1 min. She also complains of recent discharge from both ears described as bloody mucus like discharge. She denies an inciting event. She states that she regularly cleans her ears with alcohol and qtips and doesnt. She denies changes in hearing , fever, or ear pain. She has not seen her PCP for this - Allergies/Adverse Reactions Allergies Allergy/AdvReac Type Severity Reaction Status Date / Time meperidine HCl [From Demerol] AdvReac Mild Nausea Verified 05/26/17 00:06 ADHESIVES AdvReac Mild Rash Uncoded 05/26/17 00:07 - Home Medications Medication Instructions Recorded Confirmed Type Estrogens, Conjugated [Premarin] 0.15 mg PO HS 11/05/13 04/18/18 History Multivitamin [Multi-Vitamin Daily] 1 tablet PO DAILY 11/05/13 04/18/18 History Venlafaxine HCl [Effexor] 75 mg PO DAILY 11/05/13 04/18/18 History Cyanocobalamin/Folic Acid [Vitamin 1 tablet PO DAILY 07/15/14 04/18/18 History B12/Folic Acid] Mirtazapine [Remeron] 7.5 mg PO HS 05/20/16 04/18/18 History Eletriptan Hydrobromide [Relpax] 40 mg PO PRN PRN #0 tab 05/22/16 04/18/18 Rx Aspirin [Aspirin Chewable Tablet] 81 mg PO DAILY 08/11/16 04/18/18 History Cholecalciferol (Vitamin D3) 2,000 unit PO HS 08/11/16 04/18/18 History [Vitamin D] Levothyroxine Sodium 75 mcg PO DAILY 03/08/17 04/18/18 History Lacosamide [Vimpat] 50 mg PO BID 05/26/17 04/18/18 History tiZANidine HCl [Tizanidine HCl] 2 mg PO PRN PRN 05/26/17 04/18/18 History Verapamil HCl 40 mg PO DAILY 02/16/18 04/18/18 History diphenhydrAMINE HCl [Unisom] 100 mg PO HS PRN 02/16/18 04/18/18 History Acetaminophen [Tylenol Regular 650 mg PO Q4H PRN tab 02/17/18 04/18/18 Rx Strength] ALPRAZolam [Alprazolam] 1 tab PO QID PRN 04/18/18 04/18/18 History Divalproex Sodium [Depakote ER] 500 mg PO BID 04/18/18 04/18/18 History traZODone HCl [Desyrel] 1 tab PO HS 04/18/18 04/18/18 History - History PMHx: Seizure disorder NOS pseudoseizures anxiety PSHx: Hysterectomy for endometriosis and fibroids Oopherectomy due to cysts FHx: Maternal DM and HTN Social: Denies tobacco, recreational drugs, and etoh - Review of Systems General: denies: fever/chills, weight/appetite/sleep changes Eyes: denies: vision changes ENT: denies: nasal congestion, rhinorrhea Respiratory: denies: cough, congestion, shortness of breath Cardiovascular: denies: chest pain, palpitation Gastrointestinal: denies: nausea, vomiting, diarrhea, constipation, abdominal pain Skin: denies: rashes, lesions Musculoskeletal: reports: pain (middle of her back) Neurological: reports: numbness (right hand and foot post seizure), seizure. denies: weakness Psychological: reports: anxiety - Vital signs BP: 114/80 HR: 87 RR: 16 Tmax: 98.4 Pox: 97% on RA Wt: 83.6 kg - Physical Exam Constitutional: NAD, awake, alert and oriented HEENT: PERRLA, EOMI, grossly normal vision, grossly normal hearing, other (2 cm hemostatic lac on left forehead below hairline) Neck: supple, FROM, trachea midline Chest: no-tender to palpation Heart: RRR, normal S1/S2, no murmurs/rubs/gallops, no edema Lungs: CTAB, no respiratory distress Abdomen: soft, non-tender, bowel sounds present Musculoskeletal: normal structure, normal tone, other (2 lacerations to L knee repaired and hemostatic. TTP over lower thoracic/upper lumbar paraspinal mm) Neurological: no focal deficit, CN II-XII intact, normal sensation Skin: no rash/lesions, good turgor Heme/Lymphatic: no unusual bruising or bleeding, no purpura Psychiatric: normal mood and affect, good judgment and insight, intact recent and remote memory FMR H&P: Results - Labs Result Diagrams: 04/17/18 22:15 04/17/18 22:15 Lab results: WBC 5.6 thou/uL (4.8-10.8) 04/17/18 22:15 Hgb 11.4 g/dL (12.0-16.0) L 04/17/18 22:15 Hct 32.7 % (36.0-47.0) L 04/17/18 22:15 MCV 87.9 fl (81.0-99.0) 04/17/18 22:15 Plt Count 272 thou/uL (130-400) 04/17/18 22:15 Neutrophils % 51.8 % (42.0-75.0) 04/17/18 22:15 Sodium 140 mmol/L (136-145) 04/17/18 22:15 Potassium 3.8 mmol/L (3.5-5.1) 04/17/18 22:15 Chloride 108 mmol/L (98-107) H 04/17/18 22:15 Carbon Dioxide 26 mmol/L (22-29) 04/17/18 22:15 BUN 9 mg/dL (7.0-18.7) 04/17/18 22:15 Creatinine 0.71 mg/dL (0.6-1.1) 04/17/18 22:15 Glucose 86 mg/dL (70-105) 04/17/18 22:15 Calcium 8.7 mg/dL (7.8-10.44) 04/17/18 22:15 Total Bilirubin 0.2 mg/dL (0.2-1.2) 04/17/18 22:15 AST 17 U/L (5-34) 04/17/18 22:15 ALT 14 U/L (8-55) 04/17/18 22:15 Alkaline Phosphatase 61 U/L (40-150) 04/17/18 22:15 Serum Total Protein 6.1 g/dL (6.0-8.3) 04/17/18 22:15 Albumin 3.7 g/dL (3.5-5.0) 04/17/18 22:15 Urine Ketones Negative mg/dL (Negative) 04/17/18 22:28 Urine Blood Negative (Negative) 04/17/18 22:28 Urine Nitrite Negative (Negative) 04/17/18 22:28 Ur Leukocyte Esterase Negative (Negative) 04/17/18 22:28 - Radiology Interpretation CT scan - head Status: image reviewed by me (report pending, no obvious acute abnormality) FMR H&P: A/P - Problem List (1) Seizure Current Visit: Yes Status: Acute Priority: High Code(s): R56.9 - UNSPECIFIED CONVULSIONS (2) Laceration of left knee Current Visit: Yes Status: Acute Priority: Low Code(s): S81.012A - LACERATION WITHOUT FOREIGN BODY, LEFT KNEE, INIT ENCNTR (3) Laceration of forehead without complication Current Visit: Yes Status: Acute Priority: Low Code(s): S01.81XA - LACERATION W/O FOREIGN BODY OF OTH PART OF HEAD, INIT ENCNTR (4) Back pain Current Visit: Yes Status: Acute Priority: Low Code(s): M54.9 - DORSALGIA , UNSPECIFIED Qualifiers: Back pain location: thoracic back pain Back pain laterality: midline (5) Psychogenic nonepileptic seizure Current Visit: No Status: Chronic Code(s): F44.5 - CONVERSION DISORDER WITH SEIZURES OR CONVULSIONS - Plan Grand mal seizures vs psychogenic nonepileptic seizures - Admit to stroke for observation. Pt has hx of both true and psychogenic seizure. On most recent admission for seizure EEG was negative and most likely source was psychogenic. - Restart home meds, valproate level is low though pt states she has not missed her meds. - Consult neuro in am - seizure precaution Skin laceration of left knee - closed and hemostatic. routine care Skin laceration of forehead - closure not needed. Hemostatic. routine care Back pain - secondary to fall tylenol and NSAIDs for pain Code status - Full PPx SCD Diet regular Dispo: Pt is stable. This is likely a mixed picture of true and pseudoseizure. Will consult neuro for further direction. Likely length of stay 1-2 days FMR H&P: Upper Level - Pertinent history CC: Seizures 37 year old female with past medical history of uncontrolled seizures presents for multiple grand mal seizures starting last night at 20:00. She has reportedly had 11 grand mal seizures in the 6 hours since onset lasting 1 to 2 minutes with post-ictal state only lasting 30 seconds in most cases per patient and her . No loss of bowel or bladder continence during seizures. She fell once and had 2 lacerations on left leg. Her neurologist is in [place]. She takes Vimpat and Depakote for seizures and reports she has been 100% compliant with meds. She does report her Depakote dose was recently lowered. Last saw neuro 02/25/18. She reports she was working outside today and just fell back several times. She was in her normal state of health prior to that and had not been experiencing any fevers, chills, headache, chest pain, dyspnea, abdominal pain, nausea, vomiting, diarrhea, dysuria, or polyuria. - Pertinent findings Tmax 98.4 RR 18 HR 100 BP 114/80 O2 sats 94% on room air Physical Exam General: NAD, AAOx4. Eyes: EOMI, PERRL, nonicteric ENT: MMM. Oropharynx clear CV: RRR. No m/r/g. Pulses full and equal in all 4 extremities Resp: CTAB. No wheezing, rales, or rhonchi. Breathing unlabored Abd: Soft. NT/ND. No guarding or rebound Extremities: No clubbing, cyanosis, or edema. Equal movements in all extremities. Skin: No rash or ulcer. No palpable lesions. 2 lacerations on left knee s/p suture repair Neuro: CII - XII intact. No focal deficits Psych: Mood and affect appropriate. Judgement and insight intact - Plan Date/Time: 04/18/18 0140 IBlue DO, have evaluated this patient and agree with findings/plan as outlined by general intern resident. Pertinent changes/additions are listed here. 37 yo female with: 1) Grand mal seizures vs psychogenic nonepileptic seizures - Admit to stroke. On last admission, nonepileptic seizures were expected to be primary source and patient's story does raise some suspicion for psychogenic seizures such as short post-ictal state. However, patient does have known history of grand mal seizures. We will restart her home meds, place her on seizure precautions, and consult neurology in the morning. Of note, Depakote level was low 2) Skin laceration of left knee - s/p closure. Routine wound care 3) Code status - Full Attending Addendum - Attending Addendum Date/Time: 04/18/18 1009 I personally evaluated the patient and discussed the management with Drs. Morales and Jaziel I agree with the History, Examination, Assessment and Plan documented above with any addition or exceptions noted below. Patient endorses anxiety related pseudoseizures she is currently requesting pain meds specifically morphine. Will contact Neurologist research contracts supervisor for her Neurologist in [place] to attempt confirm and further recommendations regard seizure rx note subtherapeutic valproic levels. Anticipate patient will improve over next 23 hours of observation.
[2018-04-18] MEDS ORDERED: Ondansetron ODT 4 MG TAB SL PRN (02:00)
[2018-04-18] MEDS ORDERED: Ondansetron HCl/PF 4 MG/2 ML Vial IVP PRN (02:00)
[2018-04-18] MEDS ORDERED: Acetaminophen 325 MG TAB PO PRN ×2 (02:00→04:10)
[2018-04-18 02:22] VITALS: BMI 31.6
[2018-04-18] MEDS ORDERED: Lorazepam 2 MG/ML VIAL SLOW IVP PRN (02:24)
[2018-04-18] MEDS ORDERED: Ketorolac Tromethamine 30 MG/ML VIAL IVP SCH (03:30)
[2018-04-18] MEDS ORDERED: ALPRAZolam 0.5 MG TAB PO PRN (04:10)
[2018-04-18] MEDS ORDERED: Non-Formulary Item 1 EACH (Tizanidine Hcl [Tizanidine Hcl] 2 MG) PO PRN (04:10)
[2018-04-18] MEDS ORDERED: SUMAtriptan Succinate 50 MG TAB PO PRN (04:23)
[2018-04-18] MEDS ORDERED: ALPRAZolam 0.5 MG TAB PO SCH (04:30)
[2018-04-18] MEDS ORDERED: diphenhydrAMINE 50 MG CAP PO PRN (04:36)
[2018-04-18] MEDS ORDERED: tiZANidine HCl 4 MG TAB PO PRN (04:46)
[2018-04-18] MEDS ORDERED: Levothyroxine Sodium 75 MCG TAB PO SCH (06:00)
--- NOTE | 2018-04-18 07:38 | CT ---
CT OF HEAD NONCONTRAST: CLINICAL HISTORY: Seizure, trauma. FINDINGS: No evidence of acute intracranial hemorrhage, mass effect, or midline shift. Paranasal sinuses are c lear. IMPRESSION: No acute intracranial hemorrhage or mass effect. POS: [facility]
[2018-04-18] MEDS ORDERED: Lacosamide 50 mg Tablet PO SCH (09:00)
[2018-04-18] MEDS ORDERED: Cyanocobalamin (Vitamin B-12) 1,000 MCG TAB PO SCH (09:00)
[2018-04-18] MEDS ORDERED: Multivitamin W/ Minerals 1 TAB PO SCH (09:00)
[2018-04-18] MEDS ORDERED: Verapamil 80 MG TAB PO SCH ×2 (09:00→21:00)
[2018-04-18] MEDS ORDERED: Morphine 4 MG/ML VIAL SLOW IVP PRN ×2 (09:57)
[2018-04-18] MEDS ORDERED: Morphine 4 MG/ML VIAL SLOW IVP SCH (10:30)
[2018-04-18 11:42] VITALS: BP 107/76; TEMP 97.8
--- NOTE | 2018-04-18 13:55 | CON ---
DATE OF VISIT: 04/18/2018 CONSULTING SERVICE: Family Medicine. IMPRESSION: Ms. Bolivar has a history of psychogenic seizures. She is being followed by a neurolog ist in [place], currently has her on Vimpat. Supposedly, she had several seizures yesterday and was admitted complaining of back pain today. Her pain issues are also a chronic issue, for which I disco ntinued care. Her lab work was all unremarkable without any metabolic changes suggestive of a genera lized seizure. She reports currently being on Vimpat 200 mg twice a day and I will continue the Vimp at at the current dose and discharge her home for office followup with her neurologist in [place] on Thursday.
[2018-04-18] MEDS ORDERED: traZODone HCl 150 MG TAB PO SCH (21:00)
[2018-04-18] MEDS ORDERED: Mirtazapine 15 MG TAB PO SCH (21:00)
[2018-04-18] MEDS ORDERED: Estrogens, Conjugated 0.3 MG TAB PO SCH (21:00)
--- NOTE | 2018-04-18 23:48 | DIS-2 ---
DATE OF ADMISSION: 04/19/2018 DATE OF DISCHARGE: 04/19/2018 ADMITTING AND DISCHARGING ATTENDING: Dr. Rishabh Mak. ADMITTING RESIDENT: Dr. Max Morales, DISCHARGING RESIDENT: Dr. Obdulia Sheriff. DISCHARGE MEDICATIONS: 1. Premarin 0.5 mg p.o. at bedtime. 2. Multivitamin 1 tab p.o. daily. 3. Effexor 150 mg p.o. daily. 4. B12, folate 1 tab p.o. daily. 5. Remeron 7.5 mg p.o. at bedtime. 6. Relpax 40 mg p.o. p.r.n. migraine. 7. Aspirin 81 mg p.o. daily. 8. Vitamin D3 of 2000 units p.o. daily. 9. Levothyroxine 75 mcg p.o. q.a.m. 10. Vimpat 200 mg p.o. b.i.d. per epileptologist in [place]. 11. Tizanidine 2 mg p.o. p.r.n. pain. 12. Benadryl 100 mg p.o. at bedtime p.r.n. insomnia. 13. Trazodone 150 mg p.o. at bedtime. 14. Xanax 0.5 mg p.o. q.i.d. p.r.n. anxiety. 15. Depakote ER 500 mg p.o. b.i.d. 16. Verapamil 40 mg p.o. at bedtime. CHANGE MEDICATIONS: Of note, I recommend the patient discontinue Premarin after hospital stay as well as increase Effexor to 150 mg p.o. daily from her previous 75 mg every day to improve anxiety symptoms. I also recommended Toradol 10 mg p.o. q.8 hours p.r.n. pain along with her other pain management and get medications to include Tylenol and tizanidine. HISTORY OF PRESENT ILLNESS AND HOSPITAL COURSE: Patient is a 37-year-old female with known seizure disorder of mixed variety as well as prior history of psychogenic nonepileptic seizures, who arrived at the [facility] ED after complaint of greater than 5 seizures at home. Patient states she was outside gardening felt lightheaded and began to faint and then have seizure-like activity. This was unwitnessed, but patient does remember falling and arrived to the ED with a small laceration to the forehead as well as to the left knee. Other seizure-like activity was witnessed by daughter, who called EMS and patient was given 4 mg of Ativan, 2.[address] her way to the ED. Patient has epileptologist and neurologist in the [place] area who are medically managing her seizures and patient endorses being titrated up on Vimpat and down on Depakote (for which patient noted to be subtherapeutic on her Depakote at 29.2 during her hospital stay). She does endorse increased stressors at home and also endorsed back pain after home seizure activity. Patient states that some of her seizure activity is evoked by stress, pain, and fatigue. Pt was given toradol and 2mg morphine for back pain which significantly helped. Additionally, Dr. Warner came by and stated that he was planning to complete no further workup, as her history was not suggestive of a generalized seizure. He recommended the patient follow up with neurologist in [place] as did the primary team. Patient desired to go home at that time and to be treated for her pain in her home environment. DISCHARGE INSTRUCTIONS: Location: Home. DISCHARGE PRECAUTIONS: 1. Seizure precautions, no driving. 2. Diet: Regular. 3. Follow up with primary care physicians at [facility] within 1 week of discharge. 4. Followup with Neurologist and epileptologist in [place] upon discharge. BRONSON
== END 2018-04-18 13:06 | disposition home or self-care (01) ==
LOC: ERS 21:56 → 2SE 04-18 01:49
PROVIDERS: ADMIT Family Medicine; ATTEND Family Medicine
DX: R56.9 Unspecified convulsions (principal); F41.9 Anxiety disorder, unspecified; S81.012A Laceration without foreign body, left knee, initial encounter; S01.81XA Laceration without foreign body of other part of head, initial encounter; M54.9 Dorsalgia, unspecified; Z88.5 Allergy status to narcotic agent; Z79.82 Long term (current) use of aspirin; Z79.899 Other long term (current) drug therapy; Z79.52 Long term (current) use of systemic steroids
CPT/HCPCS: 12002; 36415; 70450; 80053; 80164; 81003; 83735; 84443; 85025; 94760; 96374; 96375; 96376; G0378; J1885; J2001; J2270

== ENCOUNTER 2018-11-15 12:28 | Emergency (ER) | payer OTHER ==
[2018-11-15] MEDS ORDERED: Midazolam HCl 2 mg/2 ml Vial ONE (12:35)
[2018-11-15 13:03] LABS: #Basophils 0.1 thou/uL (0.0-0.2); #Eosinphils 0.1 thou/uL (0.0-0.7); #Lymphocytes 2.1 thou/uL (1.20-3.40); #Monocytes 0.3 thou/uL (0.11-0.59); #Neutrophils 2.3 thou/uL (1.40-6.50); %Basophils 1.1 % (0.0-1.0); %Eosinophils 1.3 % (0.0-10.0); %Lymphocytes 44.1 % (21.0-51.0); %Monocytes 5.4 % (0.0-10.0); %Neutrophils 48.1 % (42.0-75.0); Hemoglobin 13.2 g/dL (12.0-16.0); Mean Corpuscular HGB CONC 34.1 g/dL (32.0-36.0); Mean Corpuscular Hemoglobin 30.3 pg (27.0-31.0); Mean Platelet Volume 6.2 fL (7.4-10.4); Platelet Count 301 thou/uL (130-400); RBC Distribution Width 11.5 % (11.5-14.5); Red Blood Cell (RBC) Count 4.35 mill/uL (4.20-5.40); White Blood Cell (WBC) Count 4.7 thou/uL (4.8-10.8)
[2018-11-15 13:16] LABS: Chloride 105 mmol/L (98-107); Potassium 3.7 mmol/L (3.5-5.1); Sodium 140 mmol/L (136-145)
[2018-11-15 13:17] LABS: Calcium 9.7 mg/dL (7.8-10.44); Glucose 115 mg/dL (70-105)
[2018-11-15 13:19] LABS: Anion Gap 16 mmol/L (10-20); Carbon Dioxide 23 mmol/L (22-29)
[2018-11-15 13:21] LABS: BUN (Urea Nitrogen) 9 mg/dL (7.0-18.7); Calc. Creatinine Clearance 0 mL/min (70-130); Estimated GFR-MDRD 73
[2018-11-15 13:23] LABS: CK (CPK) 59 U/L (29-168)
--- NOTE | 2018-11-15 13:25 | CT ---
CT BRAIN WITHOUT CONTRAST: Date: 11/15/18 HISTORY: Seizure. Fall after seizure. FINDINGS: Comparison made with exam of 04/17/18. No evidence of infarct, hemorrhage, midline shift, or abnormal extra-axial fluid collections are seen . The ventricular size is normal and the basilar cisterns are patent. The bony calvarium is intact. T he visualized paranasal sinuses and mastoid air cells are well aerated. IMPRESSION: No CT evidence of acute intracranial process. POS: [facility]
[2018-11-15 13:27] LABS: Acetaminophen Less than 6.0 mcg/mL (10.0-30.0); Alcohol Less than 10 mg/dL (Less than 10); Salicylate Less than 8.0 mg/dL (15.0-30.0)
--- NOTE | 2018-11-15 13:27 | RAD ---
RIGHT SHOULDER 3 VIEWS: Date: 11/15/18 COMPARISON: 07/26/12. HISTORY: Seizure, trauma, fall, pain. FINDINGS: There is joint space narrowing involving the glenohumeral joint with inferior glenoid osteophyte form ation. There is no widening of the acromioclavicular or coracoclavicular interspace. No displaced fra cture or dislocation. IMPRESSION: No acute osseous abnormality. POS: [facility]
[2018-11-15] MEDS ORDERED: Divalproex Sodium DR 500 MG TAB PO SCH (13:45)
[2018-11-15] MEDS ORDERED: Morphine 4 MG/ML VIAL ONE (13:53)
[2018-11-15] MEDS ORDERED: Ondansetron PF 4 MG/2 ML Vial ONE (13:53)
== END 2018-11-15 14:30 | disposition home or self-care (01) ==
LOC: ERS 12:28
DX: S09.90XA Unspecified injury of head, initial encounter (principal); S40.011A Contusion of right shoulder, initial encounter; G40.909 Epilepsy, unspecified, not intractable, without status epilepticus; D64.9 Anemia, unspecified; G47.00 Insomnia, unspecified; E03.9 Hypothyroidism, unspecified; G43.909 Migraine, unspecified, not intractable, without status migrainosus; F41.9 Anxiety disorder, unspecified; Z79.899 Other long term (current) drug therapy; Z79.82 Long term (current) use of aspirin; X58.XXXA Exposure to other specified factors, initial encounter
CPT/HCPCS: 36415; 70450; 80048; 80164; 80307; 82550; 85025; 96361; 96374; 96375; J2250; J2270; J2405

== ENCOUNTER 2019-03-06 16:28 | Emergency (ER) | payer BC, OTHER ==
[2019-03-06 17:14] LABS: Hemoglobin 13.2 g/dL (12.0-16.0); Mean Corpuscular HGB CONC 35.3 g/dL (32.0-36.0); Mean Corpuscular Hemoglobin 30.1 pg (27.0-31.0); Mean Corpuscular Volume 85.2 fL (78.0-98.0); Mean Platelet Volume 6.4 fL (7.4-10.4); Platelet Count 285 thou/uL (130-400); RBC Distribution Width 11.3 % (11.5-14.5); Red Blood Cell (RBC) Count 4.39 mill/uL (4.20-5.40); White Blood Cell (WBC) Count 5.5 thou/uL (4.8-10.8)
[2019-03-06] MEDS ORDERED: Lorazepam 2 MG/ML VIAL ONE (17:20)
[2019-03-06 17:30] LABS: ALT (SGPT) 20 U/L (8-55); AST (SGOT) 18 U/L (5-34); Albumin 4.1 g/dL (3.5-5.0); Alkaline Phosphatase 62 U/L (40-150); Anion Gap 13 mmol/L (10-20); BUN (Urea Nitrogen) 7 mg/dL (7.0-18.7); Bilirubin, Total 0.2 mg/dL (0.2-1.2); Calc. Creatinine Clearance 114 mL/min (70-130); Calcium 9.7 mg/dL (7.8-10.44); Carbon Dioxide 26 mmol/L (22-29); Chloride 106 mmol/L (98-107); Estimated GFR-MDRD 82; Globulin 2.7 g/dL (2.4-3.5); Glucose 92 mg/dL (70-105); Potassium 3.6 mmol/L (3.5-5.1); Protein, Total 6.8 g/dL (6.0-8.3); Sodium 141 mmol/L (136-145)
[2019-03-06] MEDS ORDERED: levETIRAcetam In NaCl (Iso-Os) 1,000 MG in Premix Bag 1 BAG IVPB SCH (17:30)
[2019-03-06 17:33] LABS: Eosinophils 1 % (0-10); Lymphocytes 41 % (21-51); MDiff Complete? YES; Monocytes 3 % (0-10); Neutrophil 52 % (42-75); Platelet Morphology Comment Appears Adequate; Reactive Lymphocytes 1 % (0-10)
[2019-03-06 17:38] LABS: Bilirubin Negative (Negative); Blood, Urine Negative (Negative); Clarity CLEAR (Clear); Glucose, Urine (Dipstick) Negative (Negative); Leukocyte Trace (Negative); Nitrite Negative (Negative); Protein, Urine (Dipstick) Negative (Neg-Trace); Specific Gravity, Urine 1.006 (1.002-1.036); Urobilinogen 0.2 mg/dL (0.2-1.0)
[2019-03-06 17:41] LABS: Bacteria/HPF None Seen HPF (None Seen); Hyaline Casts/LPF 0-3 HYALINE CAST LPF (0-3 Hyaline); Pathc Cast-AUWi Flag 0.13 (0-2.49); Squamous Epithelial 0-3 HPF (0-3); WBC/HPF 0-3 HPF (0-3)
[2019-03-06 17:42] LABS: Pregnancy Test - Urine (BHCG) Negative (Negative); Pregu Control Background? CLEAR/WHITE (CLR/WHITE); Pregu Control Bar Appear? YES (CONTROL BAR); Specific Gravity 1.006 (1.002-1.036)
[2019-03-06] MEDS ORDERED: Lorazepam 2 MG/ML VIAL SLOW IVP SCH (17:45)
[2019-03-06] MEDS ORDERED: Sodium Chloride 0.9% 1,000 ML IV SCH (17:45)
[2019-03-06 17:49] LABS: Amphetamine Not Detected (NotDetected); Barbiturates Screen Not Detected (NotDetected); Benzodiazepine Screen Detected (NotDetected); Cocaine Metabolite Screen Not Detected (NotDetected); Medtox Control Line Valid? VALID (VALID); Medtox Reader # READER 4; Methadone Not Detected (NotDetected); Methamphetamine Not Detected (NotDetected); Opiate Screen Not Detected (NotDetected); Oxycodone Screen Not Detected (NotDetected); Phencyclidine (PCP) Not Detected (NotDetected); THC/Cannabinoid Screen Not Detected (NotDetected); Tricyclic Screen Not Detected (NotDetected)
[2019-03-06] MEDS ORDERED: Ondansetron PF 4 MG/2 ML Vial ONE (18:08)
[2019-03-06] MEDS ORDERED: Acetaminophen 500 MG TAB ONE (18:52)
--- NOTE | 2019-03-06 19:35 | CT ---
CT head noncontrast HISTORY: Seizure. FINDINGS: There is no evidence of acute intracranial hemorrhage or infarct. Ventricles appear normal in size, shape and position. There is no mass effect or shift of structures. Visualized paranasal sinuses remain well aerated. IMPRESSION: No acute intracranial abnormalities are demonstrated.
== END 2019-03-06 22:03 | disposition short-term general hospital (02) ==
LOC: ERS 16:28
DX: G40.909 Epilepsy, unspecified, not intractable, without status epilepticus (principal); D64.9 Anemia, unspecified; G47.00 Insomnia, unspecified; E03.9 Hypothyroidism, unspecified; G43.909 Migraine, unspecified, not intractable, without status migrainosus; F41.9 Anxiety disorder, unspecified; Z79.899 Other long term (current) drug therapy; Z79.82 Long term (current) use of aspirin
CPT/HCPCS: 36415; 70450; 80053; 80164; 80306; 81003; 81015; 81025; 82140; 84146; 85025; 93005; 96361; 96365; 96375; J1953; J2060; J2405

== ENCOUNTER 2019-12-02 15:22 | Outpatient (CLI) | payer BC | END 2019-12-02 15:23 | disposition home or self-care (01) | LOC: CTENTCT 15:22 | PROVIDERS: ATTEND Specialist | DX: J32.9 Chronic sinusitis, unspecified (principal) | CPT/HCPCS: 70486 ==

== ENCOUNTER 2020-09-17 22:12 | Inpatient (IN) | payer BC, OTHER ==
[2020-09-17] MEDS ORDERED: levETIRAcetam In NaCl (Iso-Os) 1,500 MG in Premix Bag 1 BAG IVPB SCH (22:30)
[2020-09-17 22:49] LABS: #Eosinphils 0.1 thou/uL (0.0-0.7); #Lymphocytes 3.2 thou/uL (1.20-3.40); #Monocytes 0.4 thou/uL (0.11-0.59); #Neutrophils 3.8 thou/uL (1.40-6.50); %Basophils 0.5 % (0.0-1.0); %Eosinophils 1.6 % (0.0-10.0); %Lymphocytes 41.9 % (21.0-51.0); %Monocytes 5.4 % (0.0-10.0); %Neutrophils 50.6 % (42.0-75.0); Hemoglobin 12.9 g/dL (12.0-16.0); Mean Corpuscular HGB CONC 36.4 g/dL (32.0-36.0); Mean Corpuscular Hemoglobin 31.6 pg (27.0-31.0); Mean Platelet Volume 6.8 fL (7.4-10.4); Platelet Count 297 thou/uL (130-400); RBC Distribution Width 11.1 % (11.5-14.5); Red Blood Cell (RBC) Count 4.07 mill/uL (4.20-5.40); White Blood Cell (WBC) Count 7.5 thou/uL (4.8-10.8)
[2020-09-17 23:11] LABS: ALT (SGPT) 17 U/L (8-55); AST (SGOT) 24 U/L (5-34); Albumin 3.8 g/dL (3.5-5.0); Alkaline Phosphatase 75 U/L (40-110); Anion Gap 15 mmol/L (10-20); BUN (Urea Nitrogen) 9 mg/dL (7.0-18.7); Bilirubin, Total 0.2 mg/dL (0.2-1.2); Calc. Creatinine Clearance 0 mL/min (70-130); Calcium 8.2 mg/dL (7.8-10.44); Carbon Dioxide 21 mmol/L (22-29); Chloride 108 mmol/L (98-107); Estimated GFR-MDRD 81; Globulin 2.9 g/dL (2.4-3.5); Glucose 88 mg/dL (70-105); Potassium 3.7 mmol/L (3.5-5.1); Protein, Total 6.7 g/dL (6.0-8.3); Sodium 140 mmol/L (136-145)
[2020-09-17 23:28] LABS: Free T4 (Free Thyroxine) 0.99 ng/dL (0.70-1.48); Thyroid Stimulating Hormone 1.2075 uIU/mL (0.35-4.94)
[2020-09-18 00:10] LABS: Bilirubin Negative (Negative); Blood, Urine Negative (Negative); Clarity Clear (Clear); Glucose, Urine (Dipstick) Normal (Negative); Ketone, Urine Negative (Negative); Leukocyte Negative Leu/uL (Negative); Nitrite Negative (Negative); Protein, Urine (Dipstick) Negative (Neg-Trace); Specific Gravity, Urine 1.004 (1.002-1.036); Urobilinogen Normal mg/dL (Less than 2)
[2020-09-18] MEDS ORDERED: Ketorolac Tromethamine 30 MG/ML VIAL ONE (00:12)
[2020-09-18 00:17] LABS: Pregnancy Test - Urine (BHCG) Negative (Negative); Pregu Control Background? CLEAR/WHITE (CLR/WHITE); Pregu Control Bar Appear? YES (CONTROL BAR); Specific Gravity 1.004 (1.002-1.036)
[2020-09-18 00:27] LABS: Amphetamine Not Detected (NotDetected); Barbiturates Screen Not Detected (NotDetected); Benzodiazepine Screen Detected (NotDetected); Cocaine Metabolite Screen Not Detected (NotDetected); Medtox Control Line Valid? VALID (VALID); Medtox Reader # READER 4; Methadone Not Detected (NotDetected); Methamphetamine Not Detected (NotDetected); Opiate Screen Not Detected (NotDetected); Oxycodone Screen Not Detected (NotDetected); Phencyclidine (PCP) Not Detected (NotDetected); THC/Cannabinoid Screen Not Detected (NotDetected); Tricyclic Screen Not Detected (NotDetected)
[2020-09-18] MEDS ORDERED: Promethazine HCl 25 MG/ML VIAL ONE (00:28)
[2020-09-18] MEDS ORDERED: Metoclopramide HCl 10 MG/2 ML VIAL ONE (01:41)
[2020-09-18] MEDS ORDERED: diphenhydrAMINE 50 MG/ML VIAL ONE (01:41)
[2020-09-18] MEDS ORDERED: Acetaminophen 325 MG TAB PO PRN (02:56)
[2020-09-18] MEDS ORDERED: HYDROcodone/Acetaminophen 5/325 mg Tablet PO PRN (02:56)
[2020-09-18] MEDS ORDERED: Ondansetron ODT 4 MG TAB PO PRN (02:56)
[2020-09-18] MEDS ORDERED: Calcium Carbonate 500 MG ChewTAB PO PRN (02:56)
[2020-09-18] MEDS ORDERED: Ondansetron PF 4 MG/2 ML Vial IVP PRN (02:56)
[2020-09-18] MEDS ORDERED: Acetaminophen 650 MG Suppository PR PRN (02:56)
[2020-09-18] MEDS ORDERED: SUMAtriptan Succinate 50 MG TAB PO PRN (03:03)
[2020-09-18] MEDS ORDERED: tiZANidine HCl 4 MG TAB PO PRN (03:03)
[2020-09-18] MEDS ORDERED: Lorazepam 2 MG/ML VIAL SLOW IVP PRN ×2 (03:07→11:07)
--- NOTE | 2020-09-18 03:23 | PDOC.HHP ---
Hospitalist HPI - History of Present Illness seizures History of Present Illness: Case of an 40y/o female with pmhx of epilepsy, hypothyroidism, brain mass and migraine that comes to hospital after supposedly having multiple episodes of seizures at home. Per patient report she has not had any seizure for the last 19 months. ems gave 6mg of ativan in route due to some witness seizure activity. Upon wakening patient was able to state that she has been sick recently for the past 2-3 days. refers fever, vomiting, cough, sore throat, and body aches. she is also complaining of headaches. reports she has a hx of simple, complex, and grand-mal seizures. reports that the patient had 8 seizures within a time span of 45 min, with post-ictal states occurring intermittently after some of the seizures but not at all them. No incontinence reported, Patient states has been compliant with her medication, takes Depakote 500mg qam and 1000mg qpm. apprently patient was diagnosed by Dr Warner on 2018 with psychogenic seziures, episodes where witness by ed physician, described as " patient flipping over in bed and stiffening her muscles throughout, while gripping onto the handrails of the bed" , no post ictal state was noted. apparently patient was found by daughter in bathroom floor after having her first episode at 20:45 Hospitalist ROS - Review of Systems All other systems reviewed; all pertinent +/- noted in HPI/Subj Hospitalist History - Past Surgical History Past Surgical History: reports: Cholecystectomy, Hysterectomy - Family History Family History: reports: no pertinent history - Social History Smoking Status: Never smoker Alcohol: reports: None Drugs: reports: none Living Situation: With Family - Exam General Appearance: NAD, awake alert Eye: PERRL, anicteric sclera ENT: normocephalic atraumatic, no oropharyngeal lesions Neck: supple, symmetric, no JVD Heart: RRR, no murmur, no gallops Respiratory: CTAB, no wheezes, no rales Gastrointestinal: soft, non-tender, non-distended Extremities: no cyanosis, no clubbing, no edema Skin: normal turgor, no lesions, no rashes Neurological: cranial nerve grossly intact, normal sensation to touch Musculoskeletal: normal tone, normal strength Psychiatric: normal affect, normal behavior, A&O x 3 Hospitalist Results - Labs Result Diagrams: 09/17/20 22:37 09/17/20 22:37 Lab results: WBC 7.5 thou/uL (4.8-10.8) 09/17/20 22:37 Hgb 12.9 g/dL (12.0-16.0) 09/17/20 22:37 Hct 35.4 % (36.0-47.0) L 09/17/20 22:37 MCV 87.0 fL (78.0-98.0) 09/17/20 22:37 Plt Count 297 thou/uL (130-400) 09/17/20 22:37 Neutrophils % 50.6 % (42.0-75.0) 09/17/20 22:37 Sodium 140 mmol/L (136-145) 09/17/20 22:37 Potassium 3.7 mmol/L (3.5-5.1) 09/17/20 22:37 Chloride 108 mmol/L (98-107) H 09/17/20 22:37 Carbon Dioxide 21 mmol/L (22-29) L 09/17/20 22:37 BUN 9 mg/dL (7.0-18.7) 09/17/20 22:37 Creatinine 0.78 mg/dL (0.6-1.1) 09/17/20 22:37 Glucose 88 mg/dL (70-105) 09/17/20 22:37 Calcium 8.2 mg/dL (7.8-10.44) 09/17/20 22:37 Total Bilirubin 0.2 mg/dL (0.2-1.2) 09/17/20 22:37 AST 24 U/L (5-34) 09/17/20 22:37 ALT 17 U/L (8-55) 09/17/20 22:37 Alkaline Phosphatase 75 U/L (40-110) 09/17/20 22:37 Serum Total Protein 6.7 g/dL (6.0-8.3) 09/17/20 22:37 Albumin 3.8 g/dL (3.5-5.0) 09/17/20 22:37 Urine Ketones Negative mg/dL (Negative) 09/18/20 00:00 Urine Blood Negative (Negative) 09/18/20 00:00 Urine Nitrite Negative (Negative) 09/18/20 00:00 Ur Leukocyte Esterase Negative Akilah/uL (Negative) 09/18/20 00:00 Hospitalist H&P A/P - Problem (1) Seizure Code(s): R56.9 - UNSPECIFIED CONVULSIONS Status: Acute (2) Migraine Code(s): G43.909 - MIGRAINE, UNSP, NOT INTRACTABLE, WITHOUT STATUS MIGRAINOSUS Status: Chronic (3) Anxiety Code(s): F41.9 - ANXIETY DISORDER, UNSPECIFIED Status: Chronic (4) Hypothyroidism Code(s): E03.9 - HYPOTHYROIDISM, UNSPECIFIED Status: Chronic - Plan Plan: Case of an 40y/o female with the stated pmhx who presents with an episode of seizure seizures - admit as obs - neurologist consulted - negative head ct - started on keppra iv - depakote loading dose - seizure precaution migrane - pain management - continue verapamil for prevention
[2020-09-18] MEDS: HYDROcodone/Acetaminophen 5/325 mg Tablet PO PRN ×4 (03:39→21:06)
[2020-09-18] MEDS: ALPRAZolam 0.5 MG TAB PO PRN ×5 (03:44→23:35)
--- NOTE | 2020-09-18 05:51 | CT ---
CT HEAD WITHOUT CONTRAST: Date: 09/17/2020 INDICATION: Seizure. Comparison made to head CT of 03/06/2019. FINDINGS: Ventricles have normal size and position. No evidence of intracranial mass or hemorrhage. No edema or infarct. No acute finding. No interval change. IMPRESSION: No acute abnormality. POS: AGW
[2020-09-18] MEDS: Levothyroxine Sodium 75 MCG TAB PO SCH (06:43)
[2020-09-18 07:49] VITALS: BMI 30.9
[2020-09-18] MEDS: Aspirin Chewable 81 MG TAB PO SCH (08:57)
[2020-09-18] MEDS: Enoxaparin Sodium 40 MG/0.4 ML SYRINGE SC SCH (08:58)
[2020-09-18] MEDS ORDERED: levETIRAcetam In NaCl (Iso-Os) 1,500 MG in Premix Bag 1 BAG IVPB SCH (09:00)
[2020-09-18] MEDS ORDERED: FLU VACC QS2020-21(6MOS UP)/PF 60 MCG/0.5 ML SYRINGE IM ONE (09:00)
[2020-09-18 10:54] LABS: Troponin I Less than 0.010 ng/mL (< 0.028)
[2020-09-18 11:09] LABS: SARS-CoV-2 MS2 Positive; SARS-CoV-2 N Gene Negative; SARS-CoV-2 S Gene Negative; SARS-CoV-2 by NAA Not Detected (NotDetected); SARS-CoV-2 orf1ab Negative
[2020-09-18] MEDS ORDERED: Magnesium 2 GM/50 ML 2 GM in Premix Bag 1 BAG IVPB SCH (11:15)
[2020-09-18] MEDS ORDERED: Pantoprazole 40 MG VIAL IVP SCH (11:30)
[2020-09-18] MEDS ORDERED: Valproate Sodium 1,000 MG in Sodium Chloride 0.9% 100 ML IVPB SCH (11:30)
[2020-09-18 11:49] LABS: ALT (SGPT) 17 U/L (8-55); AST (SGOT) 24 U/L (5-34); Albumin 3.7 g/dL (3.5-5.0); Alkaline Phosphatase 69 U/L (40-110); Anion Gap 12 mmol/L (10-20); BUN (Urea Nitrogen) 6 mg/dL (7.0-18.7); Bilirubin, Total 0.3 mg/dL (0.2-1.2); Calc. Creatinine Clearance 141 mL/min (70-130); Calcium 8.5 mg/dL (7.8-10.44); Carbon Dioxide 24 mmol/L (22-29); Chloride 107 mmol/L (98-107); Estimated GFR-MDRD Greater than 90; Globulin 2.4 g/dL (2.4-3.5); Glucose 111 mg/dL (70-105); Lipase 38 U/L (8-78); Potassium 3.4 mmol/L (3.5-5.1); Protein, Total 6.1 g/dL (6.0-8.3); Sodium 140 mmol/L (136-145)
[2020-09-18] MEDS ORDERED: Prochlorperazine Edisylate 10 MG in Sodium Chloride 0.9% 50 ML IVPB SCH (12:00)
[2020-09-18] MEDS: diphenhydrAMINE 50 MG/ML VIAL IVP SCH ×3 (12:37→23:31)
[2020-09-18] MEDS: Ketorolac Tromethamine 30 MG/ML VIAL IVP SCH ×2 (12:37→17:46)
--- NOTE | 2020-09-18 12:53 | CON ---
NEUROLOGY CONSULTATION DATE OF CONSULTATION: 09/18/2020 REASON FOR CONSULTATION: Breakthrough seizures. HISTORY OF PRESENT ILLNESS: Ms. Bolivar is a 40-year-old female with past medical history significant for epilepsy, hypothyroidism, brain mass, and migraine, presented to the hospital after multiple episodes of generalized tonic-clonic seizure activity. The patient is somnolent and postictal after receiving Ativan, so history is taken from the at the bedside. Per , she has different types of seizure including simple complex and grand mal seizures. She has been seizure-free for several months prior to breakthrough seizures yesterday, which lasted for about over a span of 45 minutes with postictal confusion. Per , she has headache and has nausea and vomiting, so she was unable to keep her medicines down, so she missed several doses of Depakote, which resulted in breakthrough seizure. She has a neurologist in [place], who manages her medications and currently she is on Depakote and Aptiom polytherapy. She has tried the Keppra, Lamictal, and several other medications in the past with no effect on the frequency of seizures. This has been the best combination so far in the emergency. She was also diagnosed in [address] Warner of psychogenic seizures. The denies any focal weakness or focal paresthesias, but does report headache, nausea, and vomiting since the last few days. He denies any recent illness or recent contact with COVID. In the emergency room, Depakote level was done, which was less than 12. She was loaded with Keppra and was admitted to the floor for further evaluation. REVIEW OF SYSTEMS: Per all systems were reviewed and were negative except the pertinent positives and negatives mentioned in the HPI. PAST MEDICAL HISTORY: Epilepsy, questionable psychogenic nonepileptic seizures diagnosed by Dr. Warner in 2018, hypothyroidism, brain mass, and migraine. PAST SURGICAL HISTORY: Cholecystectomy and hysterectomy. FAMILY HISTORY: No family history of seizures. SOCIAL HISTORY: The patient is , lives with her . Denies smoking, alcohol, or illegal drug use. ALLERGIES: Meperidine PHYSICAL EXAMINATION: 116/86 88 18 GENERAL APPEARANCE: NAD, extremely somnolent. EYES: Anicteric sclerae. Pupils equal and reactive to light. CVS: Regular rate and rhythm. CHEST: Clear. ABDOMEN: Soft. NECK: Supple. NEUROLOGIC: Mental status, the patient is extremely somnolent, does not follow commands, does not maintain eye contact. Cranial nerves, pupils 4 mm, round and reactive to light. Face symmetric. Tongue midline. Moves neck in both direction. Hearing seems to be intact. Motor, muscle tone and bulk are normal. Moving all 4 extremities equally and symmetrically. Sensory, withdraws to nailbed pressure bilaterally. Gait deferred due to patient's safety reason. DATA REVIEWED: I reviewed the labs, which were significant for subtherapeutic Depakote level. ASSESSMENT AND PLAN: Ms. Paulina Bolivar is a 40-year-old female with a history significant for epilepsy, presented with breakthrough seizures due to medication noncompliance. Per , she missed several doses of Depakote because of nausea and vomiting and she also has a migraine, so breakthrough seizures secondary to noncompliance and migraine. Discontinue Keppra since it does not affect the frequency of seizures per . Load with Depakote 1 g IV now and then start on a home dose 500 mg IV q.a.m. and 1000 mg IV q.p.m., then change to p.o. once the patient is more awake and clear for swallowing by nursing bedside swallow eval. Observe seizure precautions. Ativan 2 mg IV for seizure greater than 2 minutes. Neuro checks every 4 hours. Use full scheduled doses of migraine cocktail to abort the headache. Compazine, Benadryl, and Toradol. Observe seizure precautions. Check Depakote level in a.m. and also check CBC, CMP, serum lipase and malaise and ammonia level. The patient's current anticonvulsant regimen is Depakote 500 - 1000 mg, Aptiom 200 mg p.o. b.i.d. Aptiom is non-formulary. was asked to bring the medication from home so that it can be given in the hospital. Continue home medications. Continue medical management per primary team. The patient is extremely somnolent and postictal. So, plan was discussed in detail with the ; nursing staff; the primary attending, Dr. Watt; and also during MDR rounds. Job ID: [id number] MTDD
--- NOTE | 2020-09-18 16:19 | PDOC.EEG ---
Neurology EEG Report - Report Report: This EEG was performed using 24 channel [employer] video digital EEG machine with 24 disc electrodes. This was an extended 2 hours 55 minutes ( 2 studies) of inpatient EEG recording . Digital analysis of the EEG was done for Azam and seizure detection which revealed no abnormalities. Background: The posterior background rhythm is 10-12 Hz. Excessive beta activity seen intermixed with the background. Minimal reactivity seen with eye opening and closure. Photic stimulation: No response seen with photic stimulation. Hyperventilation: Not performed. Sleep: No stage change was observed. Spells: Patient had one spell of seizure like activity with unresponsiveness lasting for 10-15 minutes not associated with any abnormal EEG correlate. EEG diagnosis: Normal awake EEG. Clinical interpretation: This is a normal EEG study. The spell captured was not associated with any abnormalities and therefore non-epileptic in nature (Pseudoseizure)
[2020-09-18] MEDS: Potassium Chloride 20 MEQ TAB PO SCH (17:41)
[2020-09-18] MEDS: Prochlorperazine Edisylate 10 MG in Sodium Chloride 0.9% 50 ML IVPB SCH ×2 (17:46→23:35)
[2020-09-18] MEDS ORDERED: VERAPAMIL HCL 40 MG PO SCH (21:00)
[2020-09-18] MEDS ORDERED: Mirtazapine 15 MG TAB PO SCH (21:00)
[2020-09-18] MEDS ORDERED: Cholecalciferol 1,000 UNITS (25 MCG) TAB PO SCH (21:00)
[2020-09-18] MEDS ORDERED: ESLICARBAZEPINE ACETATE 200 MG PO SCH ×2 (21:00)
[2020-09-18] MEDS ORDERED: Verapamil 80 MG TAB PO SCH (21:00)
[2020-09-18] MEDS ORDERED: Divalproex Sodium DR 500 MG TAB PO SCH (21:00)
[2020-09-18] MEDS ORDERED: traZODone HCl 150 MG TAB PO SCH (21:00)
[2020-09-18] MEDS ORDERED: Non-Formulary Item 1 EACH (Cholecalciferol (Vitamin D3) [Vitamin D] 1000 UNIT Capsule) PO SCH (21:00)
[2020-09-18] MEDS: Verapamil 80 MG TAB PO SCH (21:07)
[2020-09-19] MEDS: Ketorolac Tromethamine 30 MG/ML VIAL IVP SCH ×2 (02:54→08:59)
[2020-09-19 05:35] LABS: ALT (SGPT) 20 U/L (8-55); AST (SGOT) 22 U/L (5-34); Albumin 3.6 g/dL (3.5-5.0); Alkaline Phosphatase 70 U/L (40-110); Anion Gap 13 mmol/L (10-20); BUN (Urea Nitrogen) 8 mg/dL (7.0-18.7); Bilirubin, Total 0.2 mg/dL (0.2-1.2); Calc. Creatinine Clearance 132 mL/min (70-130); Calcium 8.7 mg/dL (7.8-10.44); Carbon Dioxide 24 mmol/L (22-29); Chloride 106 mmol/L (98-107); Estimated GFR-MDRD 85; Globulin 2.6 g/dL (2.4-3.5); Glucose 97 mg/dL (70-105); Potassium 4.1 mmol/L (3.5-5.1); Protein, Total 6.2 g/dL (6.0-8.3); Sodium 139 mmol/L (136-145)
[2020-09-19] MEDS: Levothyroxine Sodium 75 MCG TAB PO SCH (05:52)
[2020-09-19] MEDS: HYDROcodone/Acetaminophen 5/325 mg Tablet PO PRN ×2 (05:52→10:53)
[2020-09-19] MEDS: Prochlorperazine Edisylate 10 MG in Sodium Chloride 0.9% 50 ML IVPB SCH ×2 (05:53→12:43)
[2020-09-19 06:24] LABS: Hemoglobin 12.9 g/dL (12.0-16.0); Mean Corpuscular HGB CONC 34.9 g/dL (32.0-36.0); Mean Corpuscular Hemoglobin 30.6 pg (27.0-31.0); Mean Corpuscular Volume 87.7 fL (78.0-98.0); Mean Platelet Volume 6.2 fL (7.4-10.4); Platelet Count 325 thou/uL (130-400); RBC Distribution Width 11.3 % (11.5-14.5); Red Blood Cell (RBC) Count 4.21 mill/uL (4.20-5.40); White Blood Cell (WBC) Count 5.7 thou/uL (4.8-10.8)
[2020-09-19 06:26] LABS: Eosinophils 4 % (0-10); Lymphocytes 64 % (21-51); MDiff Complete? YES; Monocytes 6 % (0-10); Neutrophil 26 % (42-75)
[2020-09-19 08:05] VITALS: TEMP 97.7
[2020-09-19] MEDS: diphenhydrAMINE 50 MG/ML VIAL IVP SCH (08:59)
[2020-09-19] MEDS: Potassium Chloride 20 MEQ TAB PO SCH (10:45)
[2020-09-19] MEDS: Aspirin Chewable 81 MG TAB PO SCH (10:45)
[2020-09-19] MEDS: Enoxaparin Sodium 40 MG/0.4 ML SYRINGE SC SCH (10:45)
[2020-09-19] MEDS: Verapamil 80 MG TAB PO SCH (10:47)
[2020-09-19] MEDS: ALPRAZolam 0.5 MG TAB PO PRN (11:40)
[2020-09-19 12:03] VITALS: BP 105/81
--- NOTE | 2020-09-19 12:53 | PDOC.NEUPN ---
- Subjective Encounter Date: 09/19/20 Subjective: Patient feels better today and is able to provide history. Her headache is under control but she still still has retro-orbital pain because of bruise around the left eye when she hit her head. EEG reviewed which was normal and the spells capture were nonepileptic in nature. She does complain of problems with peripheral vision. MRI brain pending - Objective Vital Signs & Weight: Vital Signs (12 hours) Temp Pulse Resp BP Pulse Ox 09/19/20 11:32 97.7 F 90 16 105/81 95 09/19/20 08:00 94 L 09/19/20 07:53 97.7 F 86 15 107/72 94 L 09/19/20 04:00 98.1 F 87 18 102/72 91 L Weight Admit Weight 186 lb 1.6 oz Weight 186 lb 1.6 oz I&O: 09/18/20 09/19/20 09/20/20 06:59 06:59 06:59 Intake Total 400 Balance 400 Result Diagrams: 09/19/20 04:52 09/19/20 04:52 Radiology Reviewed by me: Yes EKG Reviewed by me: Yes ROS - Review of Systems Constitutional: denies: fever, chills, sweats, weakness, malaise, other Eyes: reports: pain, vision change. denies: conjunctivae inflammation, eyelid inflammation, redness, other ENT: denies: ear pain, ear discharge, nose pain, nose discharge, nose congestion, mouth pain, mouth swelling, throat pain, throat swelling, other Respiratory: denies: cough, dry, shortness of breath, hemoptysis, SOB with excertion, pleuritic pain, sputum, wheezing, other Gastrointestinal: denies: nausea, vomiting, abdominal pain, diarrhea, constipation, melena, hematochezia, other Genitourinary: denies: dysuria, frequency, incontinence, hematuria, retention, other Musculoskeletal: denies: neck pain, shoulder pain, arm pain, back pain, hand pain, leg pain, foot pain, other Skin: denies: rash, lesions, arabella, bruising, other Neurological: reports: confusion, seizures All Systems: All other systems reviewed; all pertinent +/- noted in HPI/Subj - Medication Medications: Active Medications Generic Name Dose Route Start Last Admin Trade Name Freq PRN Reason Stop Dose Admin Acetaminophen 650 mg 10/27/20 02:56 09/18/20 23:34 Acetaminophen 325 Mg Tab PO 650 mg Q4H PRN Administration Headache/Fever/Mild Pain (1-3) Hydrocodone Bitart/Acetaminophen 2 tab 09/18/20 02:56 09/19/20 10:53 Hydrocodone/Acetaminophen 5/325 Mg Tablet PO 2 tab Q4H PRN Administration Severe Pain (7-10) Alprazolam 0.5 mg 09/18/20 14:36 09/19/20 11:40 Alprazolam 0.5 Mg Tab PO 0.5 mg Q4H PRN Administration Anxiety Aspirin 81 mg 09/18/20 09:00 09/19/20 10:45 Aspirin Chewable 81 Mg Tab PO 81 mg DAILY BRIDGETTE Administration Cholecalciferol 2,000 units 09/18/20 21:00 09/18/20 21:06 Cholecalciferol 1,000 Units (25 Mcg) Tab PO 2,000 units HS BRIDGETTE Administration Divalproex Sodium 1,000 mg 09/18/20 21:00 09/18/20 21:[address] 500 Mg Tab PO 1,000 mg HS BRIDGETTE Administration Enoxaparin Sodium 40 mg 09/18/20 09:00 09/19/20 10:45 Enoxaparin Sodium 40 Mg/0.4 Ml Syringe SC 40 mg 0900 BRIDGETTE Administration Levothyroxine Sodium 75 mcg 09/18/20 06:00 09/19/20 05:52 Levothyroxine Sodium 75 Mcg Tab PO 75 mcg 0600 BRIDGETTE Administration Lorazepam 1 mg 09/18/20 11:07 09/18/20 13:58 Lorazepam 2 Mg/Ml Vial SLOW IVP 1 mg Q15MIN PRN Administration Seizures Pantoprazole Sodium 40 mg 09/19/20 09:00 09/19/20 10:45 Pantoprazole 40 Mg Tab PO 40 mg DAILY BRIDGETTE Administration Potassium Chloride 20 meq 09/18/20 17:00 09/19/20 10:45 Potassium Chloride 20 Meq Tab PO 20 meq BID-WM BRIDGETTE Administration Trazodone HCl 150 mg 09/18/20 21:00 09/18/20 21:07 Trazodone Hcl 150 Mg Tab PO 150 mg HS BRIDGETTE Administration Venlafaxine HCl 75 mg 09/18/20 21:00 09/19/20 10:45 Venlafaxine Hcl 75 Mg Tab PO 75 mg BID BRIDGETTE Administration Verapamil HCl 40 mg 09/18/20 21:00 09/19/20 10:47 Verapamil 80 Mg Tab PO 40 mg BID BRIDGETTE Administration - Exam General Appearance: awake alert Eye: PERRL ENT: normocephalic atraumatic Neck: supple Respiratory: CTAB Cardiovascular: RRR Gastrointestinal: soft Extremities: no cyanosis Skin: normal turgor Neurological: no focal deficits, no new deficit Musculoskeletal: normal tone, normal strength, no muscle wasting PSYCH: normal affect, normal behavior, A&O x 3, oriented to person, oriented to place, oriented to time Results - Labs Result Diagrams: 09/19/20 04:52 09/19/20 04:52 Lab results: WBC 5.7 thou/uL (4.8-10.8) 09/19/20 04:52 Hgb 12.9 g/dL (12.0-16.0) 09/19/20 04:52 Hct 36.9 % (36.0-47.0) 09/19/20 04:52 MCV 87.7 fL (78.0-98.0) 09/19/20 04:52 Plt Count 325 thou/uL (130-400) 09/19/20 04:52 Neutrophils % 50.6 % (42.0-75.0) 09/17/20 22:37 Sodium 139 mmol/L (136-145) 09/19/20 04:52 Potassium 4.1 mmol/L (3.5-5.1) 09/19/20 04:52 Chloride 106 mmol/L (98-107) 09/19/20 04:52 Carbon Dioxide 24 mmol/L (22-29) 09/19/20 04:52 BUN 8 mg/dL (7.0-18.7) 09/19/20 04:52 Creatinine 0.75 mg/dL (0.6-1.1) 09/19/20 04:52 Glucose 97 mg/dL (70-105) 09/19/20 04:52 Calcium 8.7 mg/dL (7.8-10.44) 09/19/20 04:52 Total Bilirubin 0.2 mg/dL (0.2-1.2) 09/19/20 04:52 AST 22 U/L (5-34) 09/19/20 04:52 ALT 20 U/L (8-55) 09/19/20 04:52 Alkaline Phosphatase 70 U/L (40-110) 09/19/20 04:52 Ammonia 66 umol/L (18-72) 09/18/20 11:23 Troponin I Less than 0.010 ng/mL (< 0.028) 09/18/20 09:59 Serum Total Protein 6.2 g/dL (6.0-8.3) 09/19/20 04:52 Albumin 3.6 g/dL (3.5-5.0) 09/19/20 04:52 Lipase 38 U/L (8-78) 09/18/20 11:23 Urine Ketones Negative mg/dL (Negative) 09/18/20 00:00 Urine Blood Negative (Negative) 09/18/20 00:00 Urine Nitrite Negative (Negative) 09/18/20 00:00 Ur Leukocyte Esterase Negative Akilah/uL (Negative) 09/18/20 00:00 - EKG Interpretation EKG: Normal sinus rhythm - Radiology Interpretation CT scan - head Status: image reviewed by me, report reviewed by me Additional Comment: Head CT reviewed which was negative for acute intracranial pathology PN A/P (1) Psychogenic nonepileptic seizure Code(s): F44.5 - CONVERSION DISORDER WITH SEIZURES OR CONVULSIONS Status: Chronic (2) Back pain Code(s): M54.9 - DORSALGIA, UNSPECIFIED Status: Acute Qualifiers: Back pain location: thoracic back pain Back pain laterality: midline (3) Depression Code(s): F32.9 - MAJOR DEPRESSIVE DISORDER, SINGLE EPISODE, UNSPECIFIED Status: Acute (4) History of anxiety Code(s): Z86.59 - PERSONAL HISTORY OF OTHER MENTAL AND BEHAVIORAL DISORDERS Status: Chronic (5) Hypothyroidism Code(s): E03.9 - HYPOTHYROIDISM, UNSPECIFIED Status: Chronic (6) Seizure disorder, complex partial Code(s): G40.209 - LOCAL-REL SYMPTC EPI W CMPLX PRT SEIZ,NOT NTRCT,W/O STAT EPI Status: Chronic Qualifiers: Epilepsy type: partial symptomatic Intractability: not intractable Status epilepticus: without status epilepticus Qualified Code(s): G40.209 - Localization-related (focal) (partial) symptomatic epilepsy and epileptic syndromes with complex partial seizures, not intractable, without status epilepticus - Plan Daily Plan: old records reviewed/req, plan discussed w/ family, PT/OT, speech therapy, out of bed/ambulate Ms. Bolivar is a 40-year-old female with history significant for epilepsy, psychogenic nonepileptic spells, back pain, headaches, depression and anxiety presented with multiple seizure-like episodes. Per , she had nausea vomiting with associated headache so she was unable to take her Depakote down for the last 2 to 3 days which is 1 of her anticonvulsant. EEG reviewed which was normal and the spells captured were nonepileptic in natur e. The patient was made aware since she has both seizures and pseudoseizures. The spells she is currently having were pseudoseizures which are treated by therapy not by seizure medications. Information on pseudoseizures was given to the patient and the at bedside. She was loaded with Depakote yesterday and is now on the home dose of Depakote 1 Patient was advised to continue her current anticonvulsant regimen which is Depakote 500-1000, and Aptiom 200 mg twice daily. She was also advised to follow-up with a neurologist to see if any adjustments were needed. Patient and the were made aware that the current spells were pseudoseizures and she needs to follow-up with a therapist regarding management of these spells. MRI brain pending to evaluate for peripheral vision loss which occurred after a fall. If MRI brain negative, then we will arrange follow-up with ophthalmology as outpatient. Observe seizure precautions. Neurochecks every 4 hours. Continue home medications. Continue medical management per primary team Plan discussed in detail with the patient, , nursing staff and during MDR rounds.
--- NOTE | 2020-09-19 13:17 | MRI ---
MRI BRAIN WITHOUT CONTRAST: HISTORY: Seizures COMPARISON: None CORRELATION: CT scan from 09/17/2020. FINDINGS: No restricted diffusion is seen. There are few foci of T2 prolongation in the periventricular white m atter, likely due to minimal chronic small vessel ischemic disease. The ventricular size is appropriate and the basilar cisterns are patent. No evidence of acute infarct, hemorrhage, midline shift or abnormal extra-axial fluid collections is seen. A partially empty sella is present. The visualized paranasal sinuses and mastoid air cells are well-aerated. IMPRESSION: No evidence of acute intracranial process.
--- NOTE | 2020-09-19 18:21 | PQF ---
Dear Dr. Watt Date: 09/19/20 Please exercise your independent, professional judgment in responding to the clarification form. Clinical indicators are provided on the bottom of this form for your review Please check appropriate box(es): [ ] Seizure Disorder, Complex partial [ ] Epilepsy Type: [ ] Psychogenic Non-epileptic Seizure/Conversion Disorder [ ] With Status Epilepticus [ ] Without Status Epilepticus [ ] Other diagnosis [x ] Unable to determine In addition, please specify: Present on Admission (POA): [ ] Yes [ ] No [ ] Unable to determine For continuity of documentation, please document condition throughout progress notes and discharge summary. Thank You. To be completed by CDI/Coding staff for physician review: CLINICAL INDICATORS - SIGNS / SYMPTOMS / LABS / RESULTS AND LOCATION IN EMR H&P: "Seizure, Acute" Neurology note: "Presented with multiple seizure-like episodes" "EEG reviewed which was normal and the spells captured were nonepileptic in nature. "Pseudoseizures (which are treated by therapy, not by seizure medications." RISK FACTORS / RESULTS AND LOCATION IN EMR H/o Epilepsy (H&P) H/o Pseudoseizures (Neurology note 09/19) TREATMENTS / RESULTS AND LOCATION IN EMR Neurology consult 09/18 Keppra IV (ER) Depakote (ER) Aptiom (Home med- see JAN) Ativan (09/18) CT head Seizure precautions EEG 09/18 CDS Signature: Stephanie Lopez RN Phone #: [phone] Date: 09/19/20 This is a permanent part of the Medical Record [facility]
--- NOTE | 2020-09-19 18:49 | PDOC.DS.DS ---
Provider - Provider Date of Admission: 09/18/20 02:07 Date of Discharge: 09/19/20 Admitting Provider: Yoshi Bruner Consultations: Neurology Primary Care Physician: WILFRIDO ABBOTT Course - Hospital Course Hospital Course: Patient is 40-year-old female with history of seizure disorder presented to the emergency room on September 11 with multiple episodes of seizures at home. The previous seizures were approximately 1-1/2 years ago. She received Ativan by EMS. CT scan of the brain was negative for acute findings. Patient was m onitored in the stroke unit. She was evaluated by neurology. Her antiepileptic medications were continued. She also received Keppra initially on admission that was later discontinued per neurology recommendation. She had another episode of seizure on 09/18. Transfer to higher level of care was recommended by neurology. However patient declined the transfer. She has been cleared by neurology for discharge. She was advised to follow-up with primary neurologist as outpatient. 24-hour care monitoring with seizure precaution as recommended. No driving until cleared by MD was advised. No changes in her medications were made. Patient also had an MRI of the brain that was negative for acute findings. She was advised to follow-up with ophthalmologyand appointment was made for September 21. Patient understands the above plan of care. Final diagnosis: Breakthrough seizures History of ? Psychogenic seizures Chronic low back pain Anxiety Depressionpatient denies any suicidal ideation Hypothyroidism Resuscitation Status: 09/18/20 02:56 Resuscitation Status Routine Resuscitation Status: FULL: Full Resuscitation - Labs Lab Results: 09/19/20 04:52 09/19/20 04:52 Abnormal Lab Results - Last 48 hrs 09/17/20 22:37: Chloride 108 H, Carbon Dioxide 21 L 09/17/20 22:37: RBC 4.07 L, Hct 35.4 L, MCH 31.6 H, MCHC 36.4 H, RDW 11.1 L, MPV 6.8 L 09/17/20 22:37: Valproic Acid Less than 12.5 L 09/18/20 00:00: U Benzodiazepines Scrn Detected H 09/18/20 11:23: Potassium 3.4 L, BUN 6 L 09/19/20 04:52: RDW 11.3 L, MPV 6.2 L, Neutrophils % (Manual) 26 L, Lymphocytes % (Manual) 64 H - Physical Exam Vitals: Vital Signs (12 hours) Temp Pulse Resp BP Pulse Ox 09/19/20 11:32 97.7 F 90 16 105/81 95 09/19/20 08:00 94 L 09/19/20 07:53 97.7 F 86 15 107/72 94 L Weight Admit Weight 186 lb 1.6 oz Weight 186 lb 1.6 oz Physical Exam: The patient was seen and examined on the day of discharge. Plan - Discharge Medications Home Medications: Medication Instructions Recorded Confirmed Type Mirtazapine [Remeron] 45 mg PO HS 05/20/16 09/18/20 History Aspirin Chewable [Aspirin Chewable 81 mg PO DAILY 08/11/16 09/18/20 History Tablet] Cholecalciferol (Vitamin D3) 2,000 unit PO HS 08/11/16 09/18/20 History [Vitamin D] Levothyroxine Sodium 75 mcg PO DAILY 03/08/17 09/18/20 History tiZANidine HCl [Tizanidine HCl] 4 mg PO PRN PRN 05/26/17 09/18/20 History ALPRAZolam [Alprazolam] 0.5 mg PO TID 04/18/18 09/18/20 History Divalproex Sodium [Depakote ER] 500 mg PO QAM 04/18/18 09/18/20 History traZODone HCl [Desyrel] 150 mg PO HS 04/18/18 09/18/[address] [Depakote] 1,000 mg PO HS 09/18/20 09/18/20 History Eslicarbazepine Acetate [Aptiom] 200 mg PO BID 09/18/20 09/18/20 History Venlafaxine HCl [Effexor] 75 mg PO BID 09/18/20 09/18/20 History Verapamil HCl 40 mg PO BID 09/18/20 09/18/20 History Allergies: meperidine HCl [From Demerol] Allergy (Mild, Verified 02/14/20 01:25) Nausea ADHESIVES Allergy (Mild, Uncoded 02/14/20 01:25) Rash - Discharge Instructions Discharge Instructions:: No driving until cleared by MD - Follow up Plan Referrals: Ras Mejias MD [Active] - 09/21/20 2:00 pm YARELY VAUGHAN & [Primary Care Provider] - Disposition: HOME
[2020-09-19] MEDS ORDERED: Mirtazapine 30 MG TAB PO SCH (21:00)
== END 2020-09-19 16:27 | disposition home or self-care (01) | DRG 101 ==
LOC: ERS 22:12 → 2SE 09-18 02:07 → OBSVTOIN 09-18 02:07
PROVIDERS: ADMIT Internal Medicine; ATTEND Internal Medicine
DX: G40.802 Other epilepsy, not intractable, without status epilepticus (principal); G89.29 Other chronic pain; Z20.828 Contact with and (suspected) exposure to other viral communicable diseases; F41.9 Anxiety disorder, unspecified; F32.9 Major depressive disorder, single episode, unspecified; G47.00 Insomnia, unspecified; M54.6 Pain in thoracic spine; E03.9 Hypothyroidism, unspecified; G43.909 Migraine, unspecified, not intractable, without status migrainosus; Z79.82 Long term (current) use of aspirin; Z88.8 Allergy status to other drugs, medicaments and biological substances; Z90.49 Acquired absence of other specified parts of digestive tract; Z90.710 Acquired absence of both cervix and uterus; Z91.14 Patient's other noncompliance with medication regimen
CPT/HCPCS: 36415; 70450; 70551; 80053; 80164; 80306; 81003; 81025; 82140; 82150; 83690; 83735; 84146; 84439; 84443; 84484; 85025; 87635; 93005; 94760; 95712; 95816; 95819; 95957; 96372; 96375; 96376; G0378; J0780; J1200; J1650; J1885; J1953; J2060; J2550; J2765; J3475; J3490; U0003

== ENCOUNTER 2021-03-04 15:54 | Inpatient (IN) | payer BC ==
[2021-03-04] MEDS ORDERED: Morphine 4 MG/ML VIAL ONE ×2 (16:13→18:45)
[2021-03-04] MEDS ORDERED: Ondansetron PF 4 MG/2 ML Vial ONE ×2 (16:14→18:45)
[2021-03-04] MEDS ORDERED: levETIRAcetam in NS 100 ML ONE (16:14)
[2021-03-04] MEDS ORDERED: Divalproex Sodium 250 MG (DR) TAB ONE (16:33)
[2021-03-04 17:12] LABS: #Basophils 0.1 thou/uL (0.0-0.2); #Lymphocytes 2.3 thou/uL (1.20-3.40); #Monocytes 0.3 thou/uL (0.11-0.59); #Neutrophils 3.9 thou/uL (1.40-6.50); %Basophils 0.8 % (0.0-1.0); %Eosinophils 0.7 % (0.0-10.0); %Lymphocytes 34.4 % (21.0-51.0); %Monocytes 4.7 % (0.0-10.0); %Neutrophils 59.5 % (42.0-75.0); Hemoglobin 11.4 g/dL (12.0-16.0); Mean Corpuscular HGB CONC 35.1 g/dL (32.0-36.0); Mean Corpuscular Hemoglobin 30.8 pg (27.0-31.0); Mean Corpuscular Volume 87.8 fL (78.0-98.0); Mean Platelet Volume 6.4 fL (7.4-10.4); Platelet Count 285 thou/uL (130-400); RBC Distribution Width 11.2 % (11.5-14.5); Red Blood Cell (RBC) Count 3.72 mill/uL (4.20-5.40); White Blood Cell (WBC) Count 6.6 thou/uL (4.8-10.8)
[2021-03-04 17:34] LABS: ALT (SGPT) 9 U/L (8-55); AST (SGOT) 18 U/L (5-34); Albumin 3.8 g/dL (3.5-5.0); Alkaline Phosphatase 63 U/L (40-110); Anion Gap 11 mmol/L (10-20); BUN (Urea Nitrogen) 7 mg/dL (7.0-18.7); Bilirubin, Total 0.3 mg/dL (0.2-1.2); Calc. Creatinine Clearance 0 mL/min (70-130); Calcium 8.5 mg/dL (7.8-10.44); Carbon Dioxide 27 mmol/L (22-29); Chloride 108 mmol/L (98-107); Dilantin Less than 1.8 ug/mL (10.0-20.0); Globulin 2.3 g/dL (2.4-3.5); Glucose 89 mg/dL (70-105); Potassium 3.5 mmol/L (3.5-5.1); Protein, Total 6.1 g/dL (6.0-8.3); Sodium 142 mmol/L (136-145)
[2021-03-04 17:38] LABS: Bilirubin Negative (Negative); Blood, Urine Negative (Negative); Clarity Clear (Clear); Glucose, Urine (Dipstick) Normal (Negative); Ketone, Urine Negative (Negative); Leukocyte Negative Leu/uL (Negative); Nitrite Negative (Negative); Protein, Urine (Dipstick) Negative (Neg-Trace); Specific Gravity, Urine 1.004 (1.002-1.036); Urobilinogen Normal mg/dL (Less than 2); pH, Urine 7.5 (5.0-9.0)
[2021-03-04] MEDS ORDERED: Diazepam 10 MG/2 ML SYRINGE ONE (17:48)
[2021-03-04] MEDS ORDERED: Ketorolac Tromethamine 30 MG/ML VIAL ONE (18:45)
[2021-03-04] MEDS ORDERED: diphenhydrAMINE 25 MG CAP PO PRN (21:17)
[2021-03-04] MEDS ORDERED: Ketorolac Tromethamine 30 MG/ML VIAL IVP PRN (21:18)
[2021-03-04] MEDS ORDERED: Lorazepam 2 MG/ML VIAL SLOW IVP PRN (21:19)
[2021-03-04] MEDS ORDERED: Acetaminophen 325 MG TAB PO PRN (21:21)
[2021-03-04] MEDS ORDERED: Zolpidem Tartrate 5 MG TAB PO SCH (22:00)
[2021-03-04] MEDS: Morphine 2 MG/ML VIAL SLOW IVP PRN (23:37)
[2021-03-04] MEDS ORDERED: Ondansetron ODT 4 MG TAB PO PRN (23:43)
[2021-03-04] MEDS: Ondansetron PF 4 MG/2 ML Vial IVP PRN (23:48)
[2021-03-05 00:55] VITALS: BMI 30.9
[2021-03-05] MEDS: HYDROcodone/Acetaminophen 5/325 mg Tablet PO PRN ×2 (05:26→11:27)
[2021-03-05 05:45] LABS: #Basophils 0.1 thou/uL (0.0-0.2); #Eosinphils 0.1 thou/uL (0.0-0.7); #Lymphocytes 2.2 thou/uL (1.20-3.40); #Monocytes 0.4 thou/uL (0.11-0.59); #Neutrophils 3.2 thou/uL (1.40-6.50); %Basophils 1.2 % (0.0-1.0); %Eosinophils 1.6 % (0.0-10.0); %Lymphocytes 37.2 % (21.0-51.0); %Monocytes 6.1 % (0.0-10.0); %Neutrophils 53.9 % (42.0-75.0); Hemoglobin 11.7 g/dL (12.0-16.0); Mean Corpuscular HGB CONC 33.1 g/dL (32.0-36.0); Mean Corpuscular Hemoglobin 29.1 pg (27.0-31.0); Mean Corpuscular Volume 87.9 fL (78.0-98.0); Mean Platelet Volume 6.7 fL (7.4-10.4); Platelet Count 295 thou/uL (130-400); RBC Distribution Width 11.3 % (11.5-14.5); Red Blood Cell (RBC) Count 4.02 mill/uL (4.20-5.40); White Blood Cell (WBC) Count 5.9 thou/uL (4.8-10.8)
[2021-03-05 05:56] LABS: Anion Gap 13 mmol/L (10-20); BUN (Urea Nitrogen) 7 mg/dL (7.0-18.7); Calc. Creatinine Clearance 130 mL/min (70-130); Calcium 8.7 mg/dL (7.8-10.44); Carbon Dioxide 27 mmol/L (22-29); Chloride 105 mmol/L (98-107); Glucose 97 mg/dL (70-105); Potassium 3.4 mmol/L (3.5-5.1); Sodium 142 mmol/L (136-145)
[2021-03-05 08:44] LABS: SARS-CoV-2 PCR by NAA Not Detected (NotDetected)
[2021-03-05] MEDS: Ondansetron PF 4 MG/2 ML Vial IVP PRN (08:48)
[2021-03-05] MEDS ORDERED: Enoxaparin Sodium 40 MG/0.4 ML SYRINGE SC SCH (09:00)
[2021-03-05] MEDS ORDERED: ESLICARBAZEPINE ACETATE 200 MG PO SCH (09:00)
[2021-03-05] MEDS: Morphine 2 MG/ML VIAL SLOW IVP PRN ×2 (09:03→14:30)
[2021-03-05] MEDS ORDERED: Potassium Chloride 20 MEQ TAB PO SCH (09:30)
[2021-03-05] MEDS ORDERED: Verapamil 80 MG TAB PO SCH (14:45)
[2021-03-05] MEDS ORDERED: Cyanocobalamin (Vitamin B-12) 1,000 MCG TAB PO SCH (14:45)
[2021-03-05] MEDS ORDERED: Levothyroxine Sodium 75 MCG TAB PO SCH (14:45)
[2021-03-05] MEDS ORDERED: Aspirin Chewable 81 MG TAB PO SCH (14:45)
[2021-03-05] MEDS ORDERED: ALPRAZolam 0.5 MG TAB PO SCH (14:45)
[2021-03-05] MEDS ORDERED: Multivit, Therapeutic 1 TAB PO SCH (14:45)
[2021-03-05 15:39] VITALS: BP 134/84; TEMP 97.8
[2021-03-05] MEDS ORDERED: Ondansetron ODT 4 MG TAB SL SCH (18:00)
[2021-03-05] MEDS ORDERED: traZODone HCl 150 MG TAB PO SCH (21:00)
[2021-03-05] MEDS ORDERED: Divalproex Sodium DR 500 MG TAB PO SCH (21:00)
== END 2021-03-05 17:10 | disposition home or self-care (01) | DRG 880 ==
LOC: ERS 15:54 → ERHOLD 19:00 → 2SE 22:43
PROVIDERS: ADMIT Internal Medicine; ATTEND Internal Medicine
DX: F44.5 Conversion disorder with seizures or convulsions (principal); G43.909 Migraine, unspecified, not intractable, without status migrainosus; E03.9 Hypothyroidism, unspecified; D64.9 Anemia, unspecified; G47.00 Insomnia, unspecified; Z91.048 Other nonmedicinal substance allergy status; Z79.82 Long term (current) use of aspirin; R42 Dizziness and giddiness; M25.512 Pain in left shoulder; G40.909 Epilepsy, unspecified, not intractable, without status epilepticus; G89.29 Other chronic pain; B34.9 Viral infection, unspecified; E87.6 Hypokalemia
CPT/HCPCS: 36415; 70450; 70486; 71045; 80048; 80053; 80164; 80185; 81003; 85025; 87635; 93005; 96365; 96375; 96376; J1885; J1953; J2270; J2405; J3360; U0003; U0005

== ENCOUNTER 2022-09-02 08:59 | Outpatient (CLI) | payer BC | END 2022-09-02 10:59 | disposition home or self-care (01) | LOC: CTENTCT 08:59 | PROVIDERS: ATTEND Specialist | DX: J32.9 Chronic sinusitis, unspecified (principal) | CPT/HCPCS: 70486 ==

== ENCOUNTER 2024-04-12 10:44 | Observation (INO) | payer BC ==
[2024-04-12 11:16] LABS: #Basophils 0.03 10x3/uL (0.0-0.2); %Basophils 0.4 % (0.0-1.0); %Eosinophils 1.3 % (0.0-10.0); %Lymphocytes 15.3 % (21.0-51.0); %Monocytes 3.9 % (0.0-10.0); %Neutrophils 78.8 % (42.0-75.0); Hematocrit 35.9 % (36.0-47.0); Hemoglobin 11.8 g/dL (12.0-16.0); Mean Corpuscular HGB CONC 32.9 g/dL (32.0-36.0); Mean Corpuscular Hemoglobin 28.4 pg (27.0-31.0); Mean Corpuscular Volume 86.3 fL (78.0-98.0); Mean Platelet Volume 8.5 fL (7.4-10.4); Platelet Count 210 10x3/uL (130-400); RBC Distribution Width 13.1 % (11.5-14.5); Red Blood Cell (RBC) Count 4.16 mill/uL (4.20-5.40)
[2024-04-12 11:34] LABS: ALT (SGPT) 29 U/L (8-55); AST (SGOT) 29 U/L (5-34); Albumin 3.8 g/dL (3.5-5.0); Alkaline Phosphatase 64 U/L (40-110); Anion Gap 12 mmol/L (10-20); BUN (Urea Nitrogen) 9 mg/dL (7.0-18.7); Bilirubin, Total 0.5 mg/dL (0.2-1.2); Calc. Creatinine Clearance 0 mL/min (70-130); Calcium 9.3 mg/dL (7.8-10.44); Carbon Dioxide 27 mmol/L (22-29); Chloride 104 mmol/L (98-107); Estimated GFR 92; Globulin 2.9 g/dL (2.4-3.5); Glucose 105 mg/dL (70-105); Lipase 15 U/L (8-78); Potassium 3.9 mmol/L (3.5-5.1); Protein, Total 6.7 g/dL (6.0-8.3); Sodium 139 mmol/L (136-145)
[2024-04-12] MEDS ORDERED: Ketorolac Tromethamine 30 MG (1 mL) VIAL ONE (15:19)
[2024-04-12] MEDS ORDERED: Ondansetron PF 4 MG/2 ML Vial ONE (15:19)
[2024-04-12] MEDS ORDERED: LORazepam 2 MG/ML SYR.(CARPUJECT) ONE (15:20)
[2024-04-12] MEDS ORDERED: Famotidine/PF 20 mg/2ml Vial ONE ×2 (15:21→15:24)
[2024-04-12] MEDS ORDERED: Ondansetron ODT 4 MG TAB PO PRN (15:56)
[2024-04-12] MEDS ORDERED: Calcium Carbonate 500 MG ChewTAB PO PRN (15:56)
[2024-04-12] MEDS ORDERED: Acetaminophen 650 MG Suppository PR PRN (15:56)
[2024-04-12] MEDS ORDERED: Acetaminophen 325 MG TAB PO PRN (15:56)
[2024-04-12] MEDS ORDERED: Guaifenesin DM 100-10/5 ML UDCUP PO PRN (15:56)
[2024-04-12 16:35] LABS: Bacteria/HPF None Seen HPF (None Seen); Bilirubin Negative (Negative); Blood, Urine Negative (Negative); CAUTI Indications for Culture Dysuria,urgency,freq; Clarity Clear (Clear); Glucose, Urine (Dipstick) Normal (Negative); Ketone, Urine 10 mg/dL (Negative); Leukocyte Negative Leu/uL (Negative); Nitrite Negative (Negative); Pregnancy Test - Urine (BHCG) Negative (Negative); Pregu Control Background? CLEAR/WHITE (CLR/WHITE); Pregu Control Bar Appear? YES (CONTROL BAR); Protein, Urine (Dipstick) Negative (Neg-Trace); RBC/HPF 0-3 HPF (0-3); Specific Gravity 1.014 (1.002-1.036); Specific Gravity, Urine 1.014 (1.002-1.036); Squamous Epithelial 0-3 HPF (0-3); Urobilinogen Normal mg/dL (Less than 2); WBC/HPF 0-3 HPF (0-3); pH, Urine 7.5 (5.0-9.0)
[2024-04-12 16:36] LABS: Urine Culture Reflex No No
[2024-04-12] MEDS: Sodium Chloride 0.9% 1,000 ML IV SCH (18:23)
[2024-04-12] MEDS: GoLYTELY 4,000 ml Bottle PO SCH (18:23)
[2024-04-12] MEDS: Valproate Sodium 1,000 MG in Sodium Chloride 0.9% 100 ML IVPB SCH (18:23)
[2024-04-12] MEDS: Ondansetron PF 4 MG/2 ML Vial IVP PRN (18:28)
[2024-04-12] MEDS: Morphine 2 MG/ML VIAL SLOW IVP PRN (18:28)
[2024-04-12 18:54] VITALS: BMI 18.3
[2024-04-12] MEDS ORDERED: Divalproex Sodium DR 500 MG TAB PO SCH (21:00)
[2024-04-12] MEDS: traZODone HCl 150 MG TAB PO SCH (21:20)
[2024-04-12] MEDS: tiZANidine HCl 4 MG TAB PO SCH (21:20)
[2024-04-12] MEDS: Verapamil 80 MG TAB PO SCH (21:20)
[2024-04-12] MEDS: Metoclopramide HCl 10 MG (2 mL) VIAL IVP SCH (23:15)
[2024-04-13] MEDS: Levothyroxine Sodium 75 MCG TAB PO SCH (05:32)
[2024-04-13] MEDS: Valproate Sodium 500 MG in Sodium Chloride 0.9% 100 ML IVPB SCH (06:28)
[2024-04-13] MEDS ORDERED: Divalproex Sodium 500 MG ER.TAB PO SCH (09:00)
[2024-04-13] MEDS: Lorazepam 2 MG/ML VIAL SLOW IVP PRN (09:43)
[2024-04-13] MEDS ORDERED: PROPOFOL 40 ML ONE (10:58)
[2024-04-13] MEDS ORDERED: Lidocaine 1% PF 5 ML VIAL ONE (10:58)
[2024-04-13 11:00] VITALS: BMI 18.3
[2024-04-13] MEDS: Fleet Saline Enema 133 ML BOT FS SCH (11:59)
[2024-04-13] MEDS ORDERED: GoLYTELY 4,000 ml Bottle PO SCH (12:16)
[2024-04-13] MEDS ORDERED: Metoclopramide HCl 10 MG (2 mL) VIAL IVP PRN (15:03)
[2024-04-13 16:08] VITALS: BP 110/71; TEMP 97.9
== END 2024-04-13 16:14 | disposition left against medical advice (07) ==
LOC: ERS 10:44 → T4-B 16:12
PROVIDERS: ADMIT Internal Medicine; ATTEND Internal Medicine
PROC: 0D758ZZ Dilation of Esophagus, Via Natural or Artificial Opening Endoscopic (ICD-10-PCS; principal; 2024-04-13)
PROC: 0DB58ZX Excision of Esophagus, Via Natural or Artificial Opening Endoscopic, Diagnostic (ICD-10-PCS; 2024-04-13)
PROC: 0DB68ZX Excision of Stomach, Via Natural or Artificial Opening Endoscopic, Diagnostic (ICD-10-PCS; 2024-04-13)
PROC: 0DJD8ZZ Inspection of Lower Intestinal Tract, Via Natural or Artificial Opening Endoscopic (ICD-10-PCS; 2024-04-13)
DX: K22.2 Esophageal obstruction (principal); K29.50 Unspecified chronic gastritis without bleeding; K21.00 Gastro-esophageal reflux disease with esophagitis, without bleeding; K31.9 Disease of stomach and duodenum, unspecified; K29.80 Duodenitis without bleeding; G40.909 Epilepsy, unspecified, not intractable, without status epilepticus; E78.5 Hyperlipidemia, unspecified; E03.9 Hypothyroidism, unspecified; G47.00 Insomnia, unspecified; D64.9 Anemia, unspecified; G43.909 Migraine, unspecified, not intractable, without status migrainosus; K21.9 Gastro-esophageal reflux disease without esophagitis; Z90.49 Acquired absence of other specified parts of digestive tract; Z98.890 Other specified postprocedural states; Z90.710 Acquired absence of both cervix and uterus; Z88.5 Allergy status to narcotic agent; Z79.899 Other long term (current) drug therapy; Z79.890 Hormone replacement therapy; Z91.048 Other nonmedicinal substance allergy status; Z79.82 Long term (current) use of aspirin
CPT/HCPCS: 36415; 80053; 81001; 81025; 83690; 85025; 88305; 88312; 88313; 88342; 96374; 96375; 96376; G0378; J1885; J2060; J2272; J2405; J2704; J2765; J3490; J7050; S0028

== ENCOUNTER 2024-04-19 16:37 | Inpatient (IN) | payer BC ==
[~2024-04-19 16:37] MED LIST: Iopamidol-370 76% 500 ML MDV (1 ML CHARGE) ONE
[2024-04-19] MEDS ORDERED: Ondansetron PF 4 MG/2 ML Vial ONE (17:50)
[2024-04-19] MEDS ORDERED: Morphine 4 MG/ML VIAL ONE (17:50)
[2024-04-19] MEDS ORDERED: Pantoprazole 40 MG VIAL ONE (17:50)
[2024-04-19] MEDS ORDERED: Dicyclomine 20 MG/2 ML VIAL ONE (18:28)
[2024-04-19 18:32] LABS: #Basophils 0.03 10x3/uL (0.0-0.2); %Basophils 0.5 % (0.0-1.0); %Eosinophils 1.1 % (0.0-10.0); %Lymphocytes 21.2 % (21.0-51.0); %Monocytes 12.9 % (0.0-10.0); %Neutrophils 63.8 % (42.0-75.0); Hematocrit 31.3 % (36.0-47.0); Hemoglobin 10.5 g/dL (12.0-16.0); Mean Corpuscular HGB CONC 33.5 g/dL (32.0-36.0); Mean Corpuscular Hemoglobin 29.3 pg (27.0-31.0); Mean Corpuscular Volume 87.4 fL (78.0-98.0); Mean Platelet Volume 8.4 fL (7.4-10.4); Platelet Count 254 10x3/uL (130-400); Red Blood Cell (RBC) Count 3.58 mill/uL (4.20-5.40)
[2024-04-19 18:42] LABS: BHCG - Serum Negative (NEGATIVE); Pregs Control Background? CLEAR/WHITE (CLR/WHITE); Pregs Control Bar Appear? YES (CONTROL BAR)
[2024-04-19 18:49] LABS: ALT (SGPT) 18 U/L (8-55); AST (SGOT) 16 U/L (5-34); Albumin 2.1 g/dL (3.5-5.0); Alkaline Phosphatase 70 U/L (40-110); Anion Gap 12 mmol/L (10-20); BUN (Urea Nitrogen) 12 mg/dL (7.0-18.7); Bilirubin, Total 0.2 mg/dL (0.2-1.2); CK (CPK) 9 U/L (29-168); Calc. Creatinine Clearance 0 mL/min (70-130); Calcium 7.2 mg/dL (7.8-10.44); Carbon Dioxide 22 mmol/L (22-29); Chloride 104 mmol/L (98-107); Estimated GFR 115; Globulin 2.2 g/dL (2.4-3.5); Glucose 76 mg/dL (70-105); Lipase 8 U/L (8-78); Potassium 3.9 mmol/L (3.5-5.1); Protein, Total 4.3 g/dL (6.0-8.3); Sodium 134 mmol/L (136-145)
[2024-04-19 19:47] LABS: Bacteria/HPF None Seen HPF (None Seen); Bilirubin Negative (Negative); Blood, Urine Negative (Negative); CAUTI Indications for Culture Acute Hematuria; Clarity Clear (Clear); Glucose, Urine (Dipstick) Normal (Negative); Ketone, Urine 20 mg/dL (Negative); Leukocyte Negative Leu/uL (Negative); Nitrite Negative (Negative); Protein, Urine (Dipstick) Negative (Neg-Trace); Squamous Epithelial 0-3 HPF (0-3); Urobilinogen Normal mg/dL (Less than 2); pH, Urine 7.5 (5.0-9.0)
[2024-04-19 19:48] LABS: Pregnancy Test - Urine (BHCG) Negative (Negative); Pregu Control Background? CLEAR/WHITE (CLR/WHITE); Pregu Control Bar Appear? YES (CONTROL BAR); Specific Gravity 1.058 (1.002-1.036)
[2024-04-19 19:58] LABS: Specific Gravity, Urine 1.058 (1.002-1.036)
[2024-04-19 19:59] LABS: Urine Culture Reflex No No; WBC/HPF 0-3 HPF (0-3)
[2024-04-19] MEDS ORDERED: fentaNYL 50 mcg/mL 1 mL Vial ONE (20:27)
[2024-04-19] MEDS ORDERED: Ondansetron PF 4 MG/2 ML Vial IVP PRN (20:45)
[2024-04-19] MEDS ORDERED: D5 1/2 NS w/20 mEq KCL 1,000 ML IV SCH (20:45)
[2024-04-19] MEDS: Piperacillin/Tazobactam 3.375 GM in Sodium Chloride 0.9% 100 ML IVPB SCH (22:00)
[2024-04-19] MEDS ORDERED: Acetaminophen 325 MG TAB PO PRN (22:05)
[2024-04-19] MEDS ORDERED: Acetaminophen 650 MG Suppository PR PRN (22:05)
[2024-04-19 22:37] VITALS: BMI 17.9
[2024-04-20] MEDS: Sodium Chloride 0.9% 1,000 ML IV SCH ×2 (00:03→18:18)
[2024-04-20] MEDS: Piperacillin/Tazobactam 3.375 GM in Sodium Chloride 0.9% 100 ML IVPB SCH (00:05)
[2024-04-20 00:34] LABS: Magnesium 1.7 mg/dL (1.6-2.6)
[2024-04-20] MEDS ORDERED: Morphine 4 MG/ML VIAL SLOW IVP PRN (00:35)
[2024-04-20] MEDS: fentaNYL 50 mcg/mL 1 mL Vial SLOW IVP PRN (01:01)
[2024-04-20] MEDS: Zolpidem Tartrate 5 MG TAB PO SCH (01:13)
[2024-04-20] MEDS: Divalproex Sodium 500 MG ER.TAB PO SCH (01:14)
[2024-04-20] MEDS: Ondansetron ODT 4 MG TAB SL PRN (01:28)
[2024-04-20] MEDS: traZODone HCl 150 MG TAB PO SCH (02:49)
[2024-04-20] MEDS: Levothyroxine Sodium 75 MCG TAB PO SCH (05:37)
[2024-04-20 06:07] LABS: #Basophils 0.05 10x3/uL (0.0-0.2); %Basophils 0.8 % (0.0-1.0); %Monocytes 12.4 % (0.0-10.0); %Neutrophils 48.3 % (42.0-75.0); Hematocrit 29.2 % (36.0-47.0); Hemoglobin 9.8 g/dL (12.0-16.0); Mean Corpuscular HGB CONC 33.6 g/dL (32.0-36.0); Mean Corpuscular Hemoglobin 29.4 pg (27.0-31.0); Mean Corpuscular Volume 87.7 fL (78.0-98.0); Mean Platelet Volume 8.3 fL (7.4-10.4); Platelet Count 257 10x3/uL (130-400); Red Blood Cell (RBC) Count 3.33 mill/uL (4.20-5.40)
[2024-04-20 06:29] LABS: Anion Gap 9 mmol/L (10-20); BUN (Urea Nitrogen) 8 mg/dL (7.0-18.7); Calc. Creatinine Clearance 104 mL/min (70-130); Calcium 7.2 mg/dL (7.8-10.44); Carbon Dioxide 22 mmol/L (22-29); Chloride 109 mmol/L (98-107); Estimated GFR 117; Glucose 71 mg/dL (70-105); Magnesium 1.7 mg/dL (1.6-2.6); Potassium 4.1 mmol/L (3.5-5.1); Sodium 136 mmol/L (136-145)
[2024-04-20] MEDS ORDERED: Atomoxetine Hcl [Strattera] 25 MG Capsule PO SCH (09:00)
[2024-04-20] MEDS ORDERED: ALPRAZolam 0.5 MG TAB PO PRN (09:03)
[2024-04-20] MEDS: hydrOXYzine 25 MG TAB PO SCH (09:16)
[2024-04-20] MEDS: Morphine 4 MG/ML VIAL SLOW IVP PRN (09:17)
[2024-04-20] MEDS: Pantoprazole 40 MG VIAL IVP SCH (09:17)
[2024-04-20] MEDS: ALPRAZolam 0.5 MG TAB PO SCH (09:24)
[2024-04-20] MEDS ORDERED: Ondansetron PF 4 MG/2 ML Vial IVP PRN (12:05)
[2024-04-20] MEDS: Ondansetron PF 4 MG/2 ML Vial IVP SCH (12:45)
[2024-04-20 13:04] VITALS: BMI 17.9
[2024-04-20] MEDS ORDERED: Non-Formulary Item 1 EACH (Hydroxyzine Hcl [Hydroxyzine Hcl] 50 MG Tablet) PO SCH (15:00)
[2024-04-20] MEDS: Lorazepam 2 MG/ML VIAL SLOW IVP SCH (18:17)
[2024-04-20] MEDS ORDERED: ESZOPICLONE 3 MG PO SCH (21:00)
[2024-04-20] MEDS ORDERED: Zolpidem Tartrate 5 MG TAB PO SCH (21:00)
[2024-04-21 07:43] LABS: ALT (SGPT) 12 U/L (8-55); AST (SGOT) 18 U/L (5-34); Albumin 1.9 g/dL (3.5-5.0); Alkaline Phosphatase 68 U/L (40-110); Anion Gap 10 mmol/L (10-20); BUN (Urea Nitrogen) 7 mg/dL (7.0-18.7); Bilirubin, Total 0.2 mg/dL (0.2-1.2); Calc. Creatinine Clearance 99 mL/min (70-130); Calcium 7.4 mg/dL (7.8-10.44); Carbon Dioxide 23 mmol/L (22-29); Chloride 109 mmol/L (98-107); Estimated GFR 115; Glucose 76 mg/dL (70-105); Potassium 3.6 mmol/L (3.5-5.1); Protein, Total 3.9 g/dL (6.0-8.3); Sodium 138 mmol/L (136-145)
[2024-04-21 07:53] LABS: Hematocrit 27.7 % (36.0-47.0); Hemoglobin 9.1 g/dL (12.0-16.0); Mean Corpuscular HGB CONC 32.9 g/dL (32.0-36.0); Mean Corpuscular Hemoglobin 28.3 pg (27.0-31.0); Mean Corpuscular Volume 86.3 fL (78.0-98.0); Mean Platelet Volume 8.2 fL (7.4-10.4); Platelet Count 270 10x3/uL (130-400); Red Blood Cell (RBC) Count 3.21 mill/uL (4.20-5.40)
[2024-04-21 08:34] LABS: Band 10 % (5-11); Eosinophils 1 % (0-10); Lymphocytes 28 % (21-51); Monocytes 3 % (0-10); Neutrophil 56 % (42-75); Platelet Adequacy Comment Platelets Normal; RBC Morphology Within Normal Limits; Reactive Lymphocytes 1 % (0-10)
[2024-04-21] MEDS: Hyoscyamine SL 0.125 MG TAB PO PRN (16:40)
[2024-04-21] MEDS ORDERED: Docusate 100 MG CAP PO SCH (21:00)
[2024-04-22 05:57] LABS: Hematocrit 28.2 % (36.0-47.0); Hemoglobin 9.4 g/dL (12.0-16.0); Mean Corpuscular HGB CONC 33.3 g/dL (32.0-36.0); Mean Corpuscular Hemoglobin 29.5 pg (27.0-31.0); Mean Corpuscular Volume 88.4 fL (78.0-98.0); Mean Platelet Volume 8.3 fL (7.4-10.4); Platelet Count 287 10x3/uL (130-400); RBC Distribution Width 13.3 % (11.5-14.5); Red Blood Cell (RBC) Count 3.19 mill/uL (4.20-5.40)
[2024-04-22 06:21] LABS: Anion Gap 10 mmol/L (10-20); BUN (Urea Nitrogen) 5 mg/dL (7.0-18.7); Calc. Creatinine Clearance 102 mL/min (70-130); Calcium 7.6 mg/dL (7.8-10.44); Carbon Dioxide 22 mmol/L (22-29); Chloride 111 mmol/L (98-107); Estimated GFR 116; Glucose 94 mg/dL (70-105); Iron 52 ug/dL (50-170); Iron Binding Capacity, Total 105 mcg/dL (265-497); Magnesium 1.6 mg/dL (1.6-2.6); Phosphorus 2.8 mg/dL (2.3-4.7); Potassium 3.2 mmol/L (3.5-5.1); Sodium 140 mmol/L (136-145)
[2024-04-22 06:27] LABS: Band 2 % (5-11); Eosinophils 2 % (0-10); Lymphocytes 39 % (21-51); Myelocyte 1 % (0-0); Neutrophil 56 % (42-75); Platelet Adequacy Comment Platelets Normal; RBC Morphology Within Normal Limits
[2024-04-22] MEDS: Ketorolac Tromethamine 30 MG (1 mL) VIAL IVP SCH (08:48)
[2024-04-22] MEDS: SUMAtriptan Succinate 25 MG TAB PO SCH (08:49)
[2024-04-22] MEDS: Magnesium 2 GM/50 ML(in water) 2 GM in Premix 1 BAG IVPB SCH (08:50)
[2024-04-22] MEDS: Lorazepam 2 MG/ML VIAL SLOW IVP SCH (10:02)
[2024-04-22] MEDS: Potassium Chloride 20 MEQ in Lactated Ringer's 1,000 ML IV SCH (10:02)
[2024-04-22] MEDS ORDERED: SUMAtriptan Succinate 50 MG TAB PO PRN (10:14)
[2024-04-22 14:47] LABS: Campy jejuni + coli by PCR Negative (Negative); STEC Shiga Toxin 1+2 Negative (Negative); Salmonella spp. by PCR Negative (Negative); Shigella spp + EIEC by PCR Negative (Negative)
[2024-04-22] MEDS: Morphine 2 MG/ML VIAL SLOW IVP SCH (15:21)
[2024-04-22] MEDS: Divalproex Sodium 250 MG ER.TAB PO SCH (16:35)
[2024-04-22] MEDS: Dicyclomine 10 MG CAP PO SCH (18:08)
[2024-04-23] MEDS: Morphine 2 MG/ML VIAL SLOW IVP SCH
[2024-04-23 04:31] LABS: #Basophils 0.04 10x3/uL (0.0-0.2); %Basophils 0.6 % (0.0-1.0); %Lymphocytes 36.7 % (21.0-51.0); %Monocytes 6.8 % (0.0-10.0); %Neutrophils 51.6 % (42.0-75.0); Hematocrit 28.6 % (36.0-47.0); Hemoglobin 9.5 g/dL (12.0-16.0); Mean Corpuscular HGB CONC 33.2 g/dL (32.0-36.0); Mean Corpuscular Hemoglobin 28.4 pg (27.0-31.0); Mean Corpuscular Volume 85.6 fL (78.0-98.0); Mean Platelet Volume 8.2 fL (7.4-10.4); Platelet Count 332 10x3/uL (130-400); RBC Distribution Width 13.3 % (11.5-14.5); Red Blood Cell (RBC) Count 3.34 mill/uL (4.20-5.40)
[2024-04-23 05:07] LABS: Anion Gap 10 mmol/L (10-20); BUN (Urea Nitrogen) 5 mg/dL (7.0-18.7); Calc. Creatinine Clearance 99 mL/min (70-130); Calcium 7.9 mg/dL (7.8-10.44); Carbon Dioxide 25 mmol/L (22-29); Chloride 110 mmol/L (98-107); Estimated GFR 115; Glucose 107 mg/dL (70-105); Magnesium 1.9 mg/dL (1.6-2.6); Potassium 3.8 mmol/L (3.5-5.1); Sodium 141 mmol/L (136-145)
[2024-04-23] MEDS ORDERED: traMADol HCl 50 MG TAB PO PRN (09:08)
[2024-04-23] MEDS ORDERED: Morphine IR 10 MG/5 ML UDCUP PO PRN (09:25)
[2024-04-23] MEDS: Divalproex Sodium 250 MG ER.TAB PO SCH (09:41)
[2024-04-23] MEDS ORDERED: Divalproex Sodium 250 MG (DR) TAB PO SCH (10:15)
[2024-04-23] MEDS ORDERED: Valproate Sodium 500 MG in Sodium Chloride 0.9% 100 ML IVPB SCH (10:15)
[2024-04-23] MEDS: Morphine IR 10 MG/5 ML UDCUP PO SCH ×2 (10:22→12:39)
[2024-04-23] MEDS: Valproate Sodium 500 MG in Sodium Chloride 0.9% 100 ML IVPB SCH (11:35)
[2024-04-23 12:15] VITALS: BP 121/83; TEMP 98.5
[2024-04-24] MEDS ORDERED: Divalproex Sodium 500 MG ER.TAB PO SCH (09:00)
[2024-04-24 18:14] LABS: Adenovirus F 40-41 Not Detected (Not Detected); Astrovirus Not Detected (Not Detected); C. difficile toxin A+B Not Detected (Not Detected); Campylobacter by PCR Not Detected (Not Detected); Cryptosporidium Not Detected (Not Detected); Cyclospora cayetanensis Not Detected (Not Detected); Entamoeba histolytica Not Detected (Not Detected); Enteroaggregative E. coli Not Detected (Not Detected); Enteropathogenic E. coli Not Detected (Not Detected); Enterotoxigenic E. coli Not Detected (Not Detected); Giardia lamblia Not Detected (Not Detected); Norovirus GI-GII Not Detected (Not Detected); Plesiomonas shigelloides Not Detected (Not Detected); Rotavirus A Not Detected (Not Detected); Salmonella Not Detected (Not Detected); Sapovirus Not Detected (Not Detected); Shiga-toxin-producing E coli Not Detected (Not Detected); Shigella/Enteroinvasive E coli Not Detected (Not Detected); Vibrio Not Detected (Not Detected); Vibrio cholerae Not Detected (Not Detected); Yersinia enterocolitica Not Detected (Not Detected)
== END 2024-04-23 14:45 | disposition home or self-care (01) | DRG 392 ==
LOC: ERS 16:37 → T4-B 20:24 → OBSVTOIN 04-20 16:04 → 2SE 04-22 16:57
PROVIDERS: ADMIT Student in an Organized Health Care Education/Training Program; ATTEND Internal Medicine
DX: K52.9 Noninfective gastroenteritis and colitis, unspecified (principal); E87.1 Hypo-osmolality and hyponatremia; R18.8 Other ascites; E44.0 Moderate protein-calorie malnutrition; Z68.1 Body mass index [BMI] 19.9 or less, adult; F44.5 Conversion disorder with seizures or convulsions; G47.00 Insomnia, unspecified; E88.09 Other disorders of plasma-protein metabolism, not elsewhere classified; I10 Essential (primary) hypertension; E83.51 Hypocalcemia; D64.9 Anemia, unspecified; E03.9 Hypothyroidism, unspecified; D50.9 Iron deficiency anemia, unspecified; Z88.8 Allergy status to other drugs, medicaments and biological substances; Z79.890 Hormone replacement therapy; Z79.899 Other long term (current) drug therapy
CPT/HCPCS: 36415; 36416; 74177; 80048; 80053; 80164; 81001; 81025; 82550; 82728; 83540; 83550; 83630; 83690; 83735; 84100; 84146; 84703; 85025; 87324; 87338; 87449; 87505; 87507; 87798; 96375; 96376; C9113; G0378; J1885; J2060; J2270; J2272; J2405; J2543; J3010; J3475; J3480; J3490; J7050; J7120; Q0162; Q9967

== ENCOUNTER 2024-05-04 11:58 | Observation (INO) | payer BC ==
[2024-05-04] MEDS ORDERED: PROPOFOL 40 ML ONE (13:58)
[2024-05-04] MEDS ORDERED: Lidocaine 1% PF 5 ML VIAL ONE (13:58)
[2024-05-04] MEDS ORDERED: PROPOFOL 20 ML ONE (14:32)
[2024-05-04] MEDS ORDERED: Lorazepam 2 MG/ML VIAL ONE ×2 (15:08→15:23)
[2024-05-04] MEDS ORDERED: Acetaminophen 325 MG TAB PO PRN (15:57)
[2024-05-04] MEDS ORDERED: Ondansetron PF 4 MG/2 ML Vial IVP PRN (15:57)
[2024-05-04] MEDS ORDERED: Lorazepam 2 MG/ML VIAL SLOW IVP PRN (15:59)
[2024-05-04] MEDS ORDERED: levETIRAcetam 500 MG (5 mL) VIAL SLOW IVP SCH (16:00)
[2024-05-04] MEDS ORDERED: SUMAtriptan Succinate 50 MG TAB PO PRN (16:16)
[2024-05-04 16:46] LABS: Bacteria/HPF None Seen HPF (None Seen); Bilirubin Negative (Negative); Blood, Urine Negative (Negative); Clarity Clear (Clear); Glucose, Urine (Dipstick) Normal (Negative); Ketone, Urine Negative (Negative); Leukocyte Negative Leu/uL (Negative); Nitrite Negative (Negative); Protein, Urine (Dipstick) Negative (Neg-Trace); RBC/HPF 0-3 HPF (0-3); Specific Gravity, Urine 1.006 (1.002-1.036); Squamous Epithelial None Seen HPF (0-3); Urobilinogen Normal mg/dL (Less than 2); WBC/HPF 0-3 HPF (0-3); pH, Urine 7.5 (5.0-9.0)
[2024-05-04 17:36] LABS: #Basophils 0.08 10x3/uL (0.0-0.2); %Basophils 1.9 % (0.0-1.0); %Lymphocytes 47.1 % (21.0-51.0); %Monocytes 7.1 % (0.0-10.0); %Neutrophils 42.4 % (42.0-75.0); Hematocrit 32.9 % (36.0-47.0); Hemoglobin 10.9 g/dL (12.0-16.0); Mean Corpuscular HGB CONC 33.1 g/dL (32.0-36.0); Mean Corpuscular Hemoglobin 29.4 pg (27.0-31.0); Mean Corpuscular Volume 88.7 fL (78.0-98.0); Mean Platelet Volume 8.5 fL (7.4-10.4); Platelet Count 359 10x3/uL (130-400); Red Blood Cell (RBC) Count 3.71 mill/uL (4.20-5.40)
[2024-05-04] MEDS: Valproate Sodium 1,000 MG, Admixture Fee 1 EACH in Sodium Chloride 0.9% 100 ML IVPB SCH (17:44)
[2024-05-04 17:50] LABS: Anion Gap 12 mmol/L (10-20); BUN (Urea Nitrogen) 6 mg/dL (7.0-18.7); Calc. Creatinine Clearance 73 mL/min (70-130); Calcium 9.5 mg/dL (7.8-10.44); Carbon Dioxide 26 mmol/L (22-29); Chloride 102 mmol/L (98-107); Estimated GFR 110; Glucose 86 mg/dL (70-105); Potassium 3.7 mmol/L (3.5-5.1); Sodium 136 mmol/L (136-145)
[2024-05-04] MEDS: Morphine IR Tab 15 MG TAB PO SCH (18:01)
[2024-05-04] MEDS ORDERED: Morphine IR 10 MG/5 ML UDCUP PO SCH (18:45)
[2024-05-04] MEDS: Magnesium 2 GM/50 ML(in water) 2 GM in Premix 1 BAG IVPB SCH (19:52)
[2024-05-04] MEDS: hydrOXYzine 25 MG TAB PO SCH (22:20)
[2024-05-04] MEDS: traZODone HCl 150 MG TAB PO SCH (22:21)
[2024-05-04] MEDS: Verapamil 80 MG TAB PO SCH (23:39)
[2024-05-04] MEDS: Divalproex Sodium 500 MG ER.TAB PO SCH (23:40)
[2024-05-04 23:56] VITALS: BMI 163062.7
[2024-05-05] MEDS: Zolpidem Tartrate 5 MG TAB PO SCH (00:19)
[2024-05-05] MEDS: Morphine IR Tab 15 MG TAB PO PRN (00:31)
[2024-05-05 04:43] LABS: #Basophils 0.09 10x3/uL (0.0-0.2); %Basophils 1.7 % (0.0-1.0); %Eosinophils 2.1 % (0.0-10.0); %Lymphocytes 52.6 % (21.0-51.0); %Monocytes 7.3 % (0.0-10.0); %Neutrophils 36.1 % (42.0-75.0); Hematocrit 30.6 % (36.0-47.0); Hemoglobin 10.1 g/dL (12.0-16.0); Mean Corpuscular Hemoglobin 28.7 pg (27.0-31.0); Mean Corpuscular Volume 86.9 fL (78.0-98.0); Platelet Count 342 10x3/uL (130-400); RBC Distribution Width 13.3 % (11.5-14.5); Red Blood Cell (RBC) Count 3.52 mill/uL (4.20-5.40)
[2024-05-05 05:07] LABS: Anion Gap 13 mmol/L (10-20); BUN (Urea Nitrogen) 7 mg/dL (7.0-18.7); Calc. Creatinine Clearance 69 mL/min (70-130); Calcium 8.4 mg/dL (7.8-10.44); Carbon Dioxide 25 mmol/L (22-29); Chloride 108 mmol/L (98-107); Estimated GFR 104; Glucose 87 mg/dL (70-105); Potassium 3.6 mmol/L (3.5-5.1); Sodium 142 mmol/L (136-145)
[2024-05-05] MEDS: Levothyroxine Sodium 75 MCG TAB PO SCH (06:33)
[2024-05-05 08:15] VITALS: BP 100/68; TEMP 97.9
[2024-05-05] MEDS: Divalproex Sodium 500 MG ER.TAB PO SCH (08:31)
[2024-05-05] MEDS ORDERED: Atomoxetine Hcl [Strattera] 25 MG Capsule PO SCH (09:00)
[2024-05-05] MEDS ORDERED: LUNESTA 3 MG PO SCH (21:00)
== END 2024-05-05 11:26 | disposition home or self-care (01) ==
LOC: SDC 11:58 → 2SE 16:00
PROVIDERS: ADMIT Hospitalist; ATTEND Internal Medicine
PROC: 0DJD8ZZ Inspection of Lower Intestinal Tract, Via Natural or Artificial Opening Endoscopic (ICD-10-PCS; principal; 2024-05-05)
DX: R10.84 Generalized abdominal pain (principal); R10.11 Right upper quadrant pain; R11.2 Nausea with vomiting, unspecified; R63.4 Abnormal weight loss; I10 Essential (primary) hypertension; D50.9 Iron deficiency anemia, unspecified; G43.909 Migraine, unspecified, not intractable, without status migrainosus; F44.5 Conversion disorder with seizures or convulsions; E03.9 Hypothyroidism, unspecified; K21.9 Gastro-esophageal reflux disease without esophagitis; E78.00 Pure hypercholesterolemia, unspecified; Z68.1 Body mass index [BMI] 19.9 or less, adult; Z90.710 Acquired absence of both cervix and uterus; Z90.49 Acquired absence of other specified parts of digestive tract; Z79.890 Hormone replacement therapy; Z79.899 Other long term (current) drug therapy; Z88.5 Allergy status to narcotic agent; Z91.048 Other nonmedicinal substance allergy status
CPT/HCPCS: 36415; 80048; 80164; 81001; 85025; J1953; J2060; J2704; J3475; J3490

== ENCOUNTER 2024-05-18 10:30 | Outpatient (CLI) | payer BC | END 2024-05-18 10:31 | disposition home or self-care (01) | LOC: MRI 10:30 | PROVIDERS: ATTEND Internal Medicine Gastroenterology | DX: R10.84 Generalized abdominal pain (principal) | CPT/HCPCS: 74183 ==